=== PATIENT | male | born 1945 | race African-American/Black ===

== ENCOUNTER → 2016-10-29 | Outpatient (CLI) | payer MEDICARE, OTHER ==
[~2016-10-29] MED LIST: ADVAIR 250/28 DISKUS IH; AMARYL2 MG PO; COREG25 MG PO; FLONASE NASAL S16 GM NS; FUROSEMIDE; LANTUS100 U/ML SQ; LEVITRA20 MG PO; LIPITOR 80MG80 MG PO; LORAZEPAM0.5 MG PO; LOW DOSE ASPIRI81 MG PO; METFORMIN1000 MG PO; MICARDIS HCT 121 TA1 PO; NORVASC 10MG10 MG PO; NOVOLOG FLEX100 U/ML SQ; OMEGA-31000 MG PO; SODIUM CHLORIDE; VITAMIN B121000 MC2 PO; VITAMIN D32000 I1 PO; XOPENEX 3 ML3 M1 IH; ZYRTEC10 MG PO
== END ==
LOC: COL.VAS 09:24
DX: I10 Essential (primary) hypertension (principal); R06.02 Shortness of breath

== ENCOUNTER → 2017-05-19 | Outpatient (CLI) | payer MEDICARE, OTHER | LOC: COL.RAD 07:00 | DX: Z13.6 Encounter for screening for cardiovascular disorders (principal); Z87.891 Personal history of nicotine dependence ==

== ENCOUNTER → 2017-09-21 | Outpatient (CLI) | payer MEDICARE, OTHER ==
[~2017-09-21] VITALS: Ht 180.3 cm; Wt 126.0 kg
[~2017-09-21] MED LIST changes: +00186-0370-20 IH; +ALBUTEROL0.83 MG/ML IH; +AQUAPHOR HEALING41% TP; +ASPIRIN 81M81 MG/TA2 PO; +ATIVAN 0.50.5 MG/TAB PO; +CAPSAICIN0.025% TOP; +COREG 25MG25 MG/TAB PO; -COREG25 MG PO; +COZAAR 25MG25 MG/TAB PO; +CYMBALTA 30MG30 MG PO; +HCTZ 25MG TAB25 MG PO; +HYTRIN10 M1 PO; +K-DUR20 MEQ PO; +LASIX 80MG TABL80 MG PO; +LEVEMIR100 U/ML SQ; -LORAZEPAM0.5 MG PO; -LOW DOSE ASPIRI81 MG PO; +MIRALAX PA17 GM/Dose PO; +MUCUS RELIEF200 MG PO; +MULTIPLE VITAMI1 CAP PO; +NEURONTIN400 MG/CAP PO; +NOVOLOG 100U100 U/M1 SQ; +ONGLYZA5 MG PO; +PERIACTIN 4MG TA4 MG PO; +PROAIR HFA0.09 MG/AC IH; +SPIRIVA RE2.5 MCG/Ac IH; +VITAMIN D 1001000 IU PO
[2017-09-21 06:25] VITALS: BP 160/81; PULSE 85
[2017-09-21 07:50] VITALS: BP 161/80; PULSE 85
[2017-09-21 07:51] VITALS: BP 161/63; PULSE 87
[2017-09-21 07:53] VITALS: BP 153/78; PULSE 84
[2017-09-21 09:20] LABS: CALCIUM 9.6 mg/dL (8.4-10.2); CREATININE, serum 1.67 mg/dL (0.66-1.25); POTASSIUM 3.7 mmol/L (3.4-5.0)
== END ==
LOC: COL.CARD 09-16 10:45
PROVIDERS: Internal Medicine
DX: R07.89 Other chest pain (principal); R06.02 Shortness of breath; I50.30 Unspecified diastolic (congestive) heart failure
CPT/HCPCS: A9502; J2785

== ENCOUNTER 2017-10-13 10:11 | Inpatient (IN) | payer MEDICARE, OTHER ==
[~2017-10-13] VITALS: Ht 180.3 cm; Wt 126.6 kg
[2017-10-13 10:37] LABS: BASO % 0.1 % (0.0-2.0); GRAN # 13.4 (1.4-6.5); GRAN % 85.3 % (42.2-75.2); HEMOGLOBIN 9.5 g/dl (13.5-18.0); LYMPH # 0.8 (1.2-3.4); LYMPH % 5.1 % (20.0-51.0); MEAN CELL VOLUME 71 fl (80.0-100.0); MEAN CORPUSCULAR HEMOGLOBIN 22 pg (27.0-31.0); MEAN CORPUSCULAR HGB CONC 31 g/dl (33.0-37.0); MEAN PLATELET VOLUME 9.6 fl (7.4-10.4); MONO # 1.4 (0.1-0.6); MONO % 8.9 % (1.7-9.3); PLATELET COUNT 214 K/mm3 (130-400); RED BLOOD COUNT 4.34 M/mm3 (4.20-5.60)
[2017-10-13] MEDS ORDERED: LEVAQUIN 750MG750 M1 PO (10:45)
[2017-10-13 10:47] LABS: ARTERIAL BLD GAS O2 SATURATION 96.5 % (92-100); ARTERIAL BLD GAS TCO2 CT 39.4; ARTERIAL BLOOD GAS HCO3 37.8 meq/L (22-26); ARTERIAL BLOOD GAS PCO2 50.3 mmHg (35-45); ARTERIAL BLOOD GAS PO2 79.3 mmHg (80-100); ARTERIAL BLOOD GAS pH 7.49 (7.35-7.45)
[2017-10-13 11:04] LABS: ALANINE AMINOTRANSFERASE 26 U/L (21-72); ALKALINE PHOSPHATASE 71 U/L (50-136); ANION GAP 12 mmol/L (7-16); AST,SGOT 36 U/L (15-37); BILIRUBIN,TOTAL 0.5 mg/dL (0.0-1.0); BLOOD UREA NITROGEN 31 mg/dL (9-20); CALCIUM 8.8 mg/dL (8.4-10.2); CARBON DIOXIDE 37 mmol/L (22-30); CREATININE, serum 1.67 mg/dL (0.66-1.25); GLUCOSE 253 mg/dL (74-106); MAGNESIUM 1.9 mg/dL (1.6-2.3); PHOSPHOROUS 3.1 mg/dL (2.5-4.5); POTASSIUM 3.3 mmol/L (3.4-5.0); SODIUM 127 mmol/L (137-145); TOTAL PROTEIN 7.8 gm/dL (6.4-8.2)
[2017-10-13 11:07] LABS: CHLORIDE 77 mmol/L (98-107)
[2017-10-13 11:20] LABS: TROPONIN-I < 0.012 ng/mL (0.000-0.034)
[2017-10-13 11:24] LABS: INR 1.2 (0.8-3.0); PROTHROMBIN TIME 13.6 SECONDS (9.7-12.8)
[2017-10-13 11:27] LABS: PARTIAL THROMBOPLASTIN TIME 29.8 SECONDS (26.0-37.0)
[2017-10-13 12:32] LABS: COLLECTION METHOD CLEAN CATCH
[2017-10-13 12:40] LABS: PH 7 (5-8); SQUAMOUS EPITHELIAL None Seen /hpf; URINE APPEARANCE Clear; URINE BACTERIA None Seen /hpf; URINE BILIRUBIN Negative (NEGATIVE); URINE BLOOD Negative (NEGATIVE); URINE COLOR Straw; URINE GLUCOSE 2+ (NEGATIVE); URINE KETONE Negative (NEGATIVE); URINE LEUKOCYTE ESTERASE Negative (NEGATIVE); URINE NITRATE Negative (NEGATIVE); URINE PROTEIN(semi-quant) 1+ (NEGATIVE); URINE RBC None Seen /hpf; URINE UROBILINOGEN Negative (NEGATIVE)
[2017-10-13 17:26] VITALS: BP 145/80; PULSE 82; TEMP 97.7
[2017-10-13 19:24] LABS: MEAN CELL VOLUME 72 fl (80.0-100.0); MEAN CORPUSCULAR HGB CONC 30 g/dl (33.0-37.0); MEAN PLATELET VOLUME 9.5 fl (7.4-10.4); PLATELET COUNT 223 K/mm3 (130-400); RED BLOOD COUNT 4.51 M/mm3 (4.20-5.60); REDCELL DISTRIBUTION WIDTH-CV 17.1 % (11.5-14.5)
[2017-10-13 19:27] LABS: HEMATOCRIT 32.6 % (42.0-52.0); HEMOGLOBIN 9.8 g/dl (13.5-18.0); MEAN CORPUSCULAR HEMOGLOBIN 22 pg (27.0-31.0)
[2017-10-13 19:33] LABS: CALCIUM 8.7 mg/dL (8.4-10.2); CREATININE, serum 1.5 mg/dL (0.66-1.25); POTASSIUM 3.5 mmol/L (3.4-5.0)
[2017-10-13 20:00] VITALS: BP 150/68; PULSE 76; TEMP 98
[2017-10-14] VITALS (18 sets, daily range): BP systolic 112–149; BP diastolic 55–85; PULSE 61–76; TEMP 93–98.9
[2017-10-14 07:30] LABS: BASO % 0.1 % (0.0-2.0); EOS % 0.1 % (0-4.0); GRAN # 12.6 (1.4-6.5); GRAN % 80.5 % (42.2-75.2); LYMPH # 1.7 (1.2-3.4); LYMPH % 11.1 % (20.0-51.0); MEAN CELL VOLUME 74 fl (80.0-100.0); MEAN CORPUSCULAR HGB CONC 29 g/dl (33.0-37.0); MEAN PLATELET VOLUME 9.4 fl (7.4-10.4); MONO # 1.2 (0.1-0.6); MONO % 7.7 % (1.7-9.3); PLATELET COUNT 241 K/mm3 (130-400); RED BLOOD COUNT 4.31 M/mm3 (4.20-5.60); REDCELL DISTRIBUTION WIDTH-CV 17.2 % (11.5-14.5)
[2017-10-14 07:32] LABS: ALBUMIN 3.5 gm/dL (3.5-5.0); BILIRUBIN,TOTAL 0.6 mg/dL (0.0-1.0); CALCIUM 8.6 mg/dL (8.4-10.2); CHOLESTEROL RISK RATIO 2.5; CREATININE, serum 1.59 mg/dL (0.66-1.25); POTASSIUM 3.5 mmol/L (3.4-5.0); TOTAL PROTEIN 7.1 gm/dL (6.4-8.2)
[2017-10-14 07:42] LABS: HEMOGLOBIN 9.3 g/dl (13.5-18.0); MEAN CORPUSCULAR HEMOGLOBIN 22 pg (27.0-31.0)
[2017-10-15 04:49] VITALS: BP 135/63; PULSE 74; TEMP 98.6
[2017-10-15 05:20] LABS: ARTERIAL BLD GAS O2 SATURATION 81.2 % (92-100); ARTERIAL BLD GAS TCO2 CT 40.3; ARTERIAL BLOOD GAS HCO3 38.5 meq/L (22-26); ARTERIAL BLOOD GAS pH 7.43 (7.35-7.45)
[2017-10-15 05:22] LABS: ARTERIAL BLOOD GAS PO2 45.8 mmHg (80-100)
[2017-10-15 07:17] LABS: CALCIUM 8.7 mg/dL (8.4-10.2); CREATININE, serum 1.9 mg/dL (0.66-1.25); POTASSIUM 3.5 mmol/L (3.4-5.0)
[2017-10-15 07:26] VITALS: BP 144/77; PULSE 68; TEMP 97.4
[2017-10-15 11:34] VITALS: BP 121/61; PULSE 73; TEMP 98.3
[2017-10-15 16:27] VITALS: BP 124/58; PULSE 68; TEMP 98.5
[2017-10-15 20:58] VITALS: BP 116/50; PULSE 65; TEMP 97.5
[2017-10-16 00:43] VITALS: BP 126/65; PULSE 64; TEMP 97.7
[2017-10-16 03:10] VITALS: BP 141/73; PULSE 66; TEMP 98.7
[2017-10-16 07:53] LABS: CALCIUM 8.9 mg/dL (8.4-10.2); CREATININE, serum 1.89 mg/dL (0.66-1.25); POTASSIUM 4.2 mmol/L (3.4-5.0)
[2017-10-16 08:52] VITALS: BP 135/52; PULSE 64; TEMP 97.8
[2017-10-16] MEDS ORDERED: LIPITOR 80MG80 MG PO (08:58)
[2017-10-16] MEDS ORDERED: NITROSTAT0.4 MG/TAB SL (09:00)
[2017-10-16] MEDS ORDERED: ALDACTONE50 MG PO (09:01)
[2017-10-16] MEDS ORDERED: K-TAB20 PO (09:02)
[2017-10-16] MEDS ORDERED: ATIVAN 0.50.5 MG/TAB PO (09:03)
[2017-10-16] MEDS ORDERED: PREDNISONE20 MG PO (09:06)
[2017-10-16] MEDS ORDERED: LASIX 20MG TABL20 MG PO (09:07)
== END 2017-10-16 11:21 | disposition home health service (06) | DRG 286 ==
LOC: COL.ER 10:11 → MEDICAL 12:31
PROVIDERS: Emergency Medicine; Family Medicine; Internal Medicine Cardiovascular Disease
PROC: B2111ZZ Fluoroscopy of Multiple Coronary Arteries using Low Osmolar Contrast (ICD-10-PCS; principal; 2017-10-14)
PROC: B2151ZZ Fluoroscopy of Left Heart using Low Osmolar Contrast (ICD-10-PCS; 2017-10-14)
PROC: 4A023N8 Measurement of Cardiac Sampling and Pressure, Bilateral, Percutaneous Approach (ICD-10-PCS; 2017-10-14)
DX: I27.29 Other secondary pulmonary hypertension (principal); I50.33 Acute on chronic diastolic (congestive) heart failure; I13.0 Hypertensive heart and chronic kidney disease with heart failure and stage 1 through stage 4 chronic kidney disease, or unspecified chronic kidney disease; E87.1 Hypo-osmolality and hyponatremia; N17.9 Acute kidney failure, unspecified; I27.20 Pulmonary hypertension, unspecified; E66.2 Morbid (severe) obesity with alveolar hypoventilation; I25.10 Atherosclerotic heart disease of native coronary artery without angina pectoris; N18.3 Chronic kidney disease, stage 3 (moderate); E11.22 Type 2 diabetes mellitus with diabetic chronic kidney disease; J44.9 Chronic obstructive pulmonary disease, unspecified; E11.42 Type 2 diabetes mellitus with diabetic polyneuropathy; Z87.891 Personal history of nicotine dependence; E87.6 Hypokalemia; Z79.4 Long term (current) use of insulin; Z68.39 Body mass index [BMI] 39.0-39.9, adult
CPT/HCPCS: 99222; J1644; J1815; J2250; J3010; J3480; J7512; Q9967

== ENCOUNTER 2017-11-19 09:04 | Day surgery (SDC) | payer MEDICARE, OTHER ==
[~2017-11-19] VITALS: Ht 180.3 cm; Wt 120.7 kg
[2017-11-19 09:00] VITALS: BP 165/86; PULSE 77
[~2017-11-19 09:04] MED LIST changes: +ALDACTONE50 MG PO; +K-TAB20 PO; +LASIX 20MG TABL20 MG PO; +LEVAQUIN 750MG750 M1 PO; +NITROSTAT0.4 MG/TAB SL; +PREDNISONE20 MG PO
[2017-11-19 10:27] LABS: HEMOGLOBIN 10.5 g/dl (13.5-18.0); MEAN CELL VOLUME 79 fl (80.0-100.0); MEAN CORPUSCULAR HEMOGLOBIN 22 pg (27.0-31.0); MEAN CORPUSCULAR HGB CONC 28 g/dl (33.0-37.0); PLATELET COUNT 193 K/mm3 (130-400); RED BLOOD COUNT 4.71 M/mm3 (4.20-5.60); REDCELL DISTRIBUTION WIDTH-CV 18.5 % (11.5-14.5)
[2017-11-19 10:31] LABS: CALCIUM 9.2 mg/dL (8.4-10.2); CREATININE, serum 1.19 mg/dL (0.66-1.25)
[2017-11-19] MEDS ORDERED: PACERONE200 MG PO (10:38)
[2017-11-19 10:40] LABS: INR 1.1 (0.8-3.0); PROTHROMBIN TIME 12.2 SECONDS (9.7-12.8)
== END 2017-11-19 11:00 | disposition home or self-care (01) ==
LOC: COL.CAR 09:04
PROVIDERS: Internal Medicine Cardiovascular Disease
DX: I48.1 Persistent atrial fibrillation (principal); J44.9 Chronic obstructive pulmonary disease, unspecified; D64.9 Anemia, unspecified; E11.22 Type 2 diabetes mellitus with diabetic chronic kidney disease; I13.0 Hypertensive heart and chronic kidney disease with heart failure and stage 1 through stage 4 chronic kidney disease, or unspecified chronic kidney disease; N18.3 Chronic kidney disease, stage 3 (moderate); I50.22 Chronic systolic (congestive) heart failure; I27.20 Pulmonary hypertension, unspecified; I25.10 Atherosclerotic heart disease of native coronary artery without angina pectoris; I73.9 Peripheral vascular disease, unspecified; G47.33 Obstructive sleep apnea (adult) (pediatric); I74.5 Embolism and thrombosis of iliac artery; F43.10 Post-traumatic stress disorder, unspecified; F31.9 Bipolar disorder, unspecified; Z79.82 Long term (current) use of aspirin; Z79.4 Long term (current) use of insulin; Z87.891 Personal history of nicotine dependence
CPT/HCPCS: J2704

== ENCOUNTER 2018-05-03 13:04 | Inpatient (IN) | payer MEDICARE, OTHER ==
[~2018-05-03] VITALS: Ht 180.3 cm; Wt 110.4 kg
[~2018-05-03 13:04] MED LIST changes: +PACERONE200 MG PO
[2018-05-03 13:56] LABS: HEMOGLOBIN 10.6 g/dl (13.5-18.0); MEAN CELL VOLUME 83 fl (80.0-100.0); MEAN CORPUSCULAR HEMOGLOBIN 25 pg (27.0-31.0); MEAN CORPUSCULAR HGB CONC 30 g/dl (33.0-37.0); MEAN PLATELET VOLUME 10.8 fl (7.4-10.4); PLATELET COUNT 182 K/mm3 (130-400); REDCELL DISTRIBUTION WIDTH-CV 14.6 % (11.5-14.5)
[2018-05-03 14:04] LABS: HEMATOCRIT 34.9 % (42.0-52.0)
[2018-05-03 14:07] LABS: ALANINE AMINOTRANSFERASE 25 U/L (21-72); ALBUMIN 3.7 gm/dL (3.5-5.0); ALKALINE PHOSPHATASE 120 U/L (50-136); ANION GAP 10 mmol/L (7-16); AST,SGOT 28 U/L (15-37); BILIRUBIN,TOTAL 0.5 mg/dL (0.0-1.0); BLOOD UREA NITROGEN 60 mg/dL (9-20); CALCIUM 9.2 mg/dL (8.4-10.2); CARBON DIOXIDE 31 mmol/L (22-30); CHLORIDE 92 mmol/L (98-107); GLUCOSE 192 mg/dL (74-106); POTASSIUM 4.9 mmol/L (3.4-5.0); SODIUM 133 mmol/L (137-145); TOTAL PROTEIN 7.8 gm/dL (6.4-8.2)
[2018-05-03 14:21] LABS: TROPONIN-I < 0.012 ng/mL (0.000-0.035)
[2018-05-03 14:23] LABS: ANISOCYTOSIS 1+; BAND 6 % (0-10); HYPOCHROMIA 1+; LYMPHOCYTE 4 % (20.0-51.0); NEUTROPHILS 89 % (42.0-75.2); NUCLEATED RED BLOOD CELL 2 (0-6); PLATELET ESTIMATE NORMAL (NORMAL)
[2018-05-03 16:21] VITALS: BP 118/51; PULSE 71; TEMP 99
[2018-05-03] MEDS ORDERED: FERROUS SU325 MG/TAB PO (17:36)
[2018-05-03] MEDS ORDERED: ELIQUIS 5MG PO (17:36)
[2018-05-03] MEDS ORDERED: ALDACTONE50 MG PO (17:37)
[2018-05-03] MEDS ORDERED: PACERONE200 MG PO (17:37)
[2018-05-03] MEDS ORDERED: LASIX 20MG TABL20 MG PO (17:37)
[2018-05-03] MEDS ORDERED: CORDARONE200 MG/TAB PO (17:58)
--- NOTE | 2018-05-03 18:24 | NUR ---
Patient arrived to floor at 1650 via stretcher from ER. Assisted to bed, did have some difficulty moving from stretcher to bed, did become fatigued easily. Denied pain. Was settled in bed. Requested assistance removing jeans and putting on a larger size brief. States he has not urinated all day. IVF are being administered. Patient has been able to drink water without difficulty. States his appetite has been poor but was able to eat 100% of grilled cheese, tomato soup and fruit. No needs verbalized. Call light is within reach.
[2018-05-03 19:38] LABS: COLLECTION METHOD CLEAN CATCH
[2018-05-03 19:50] LABS: BUDDING YEAST Present /hpf; MUCOUS Present /lpf; PH 5 (5-8); SQUAMOUS EPITHELIAL None Seen /hpf; URINE APPEARANCE Cloudy; URINE BACTERIA Occasional /hpf; URINE BILIRUBIN Negative (NEGATIVE); URINE BLOOD 1+ (NEGATIVE); URINE COLOR Yellow; URINE GLUCOSE Negative (NEGATIVE); URINE KETONE Negative (NEGATIVE); URINE LEUKOCYTE ESTERASE 2+ (NEGATIVE); URINE NITRATE Negative (NEGATIVE); URINE PROTEIN(semi-quant) 2+ (NEGATIVE); URINE RBC 20-50 /hpf
[2018-05-03 20:09] VITALS: BP 124/92; PULSE 70; TEMP 98.6
[2018-05-03 23:15] VITALS: BP 124/55; PULSE 64; TEMP 99
[2018-05-04 04:19] VITALS: BP 120/50; PULSE 60; TEMP 97.9
[2018-05-04 08:01] VITALS: BP 134/59; PULSE 64; TEMP 98.3
[2018-05-04 08:40] LABS: MEAN CELL VOLUME 83 fl (80.0-100.0); MEAN CORPUSCULAR HGB CONC 31 g/dl (33.0-37.0); MEAN PLATELET VOLUME 10.8 fl (7.4-10.4); PLATELET COUNT 184 K/mm3 (130-400); RED BLOOD COUNT 3.92 M/mm3 (4.20-5.60); REDCELL DISTRIBUTION WIDTH-CV 14.9 % (11.5-14.5)
[2018-05-04 08:54] LABS: HEMATOCRIT 32.4 % (42.0-52.0); HEMOGLOBIN 9.9 g/dl (13.5-18.0); MEAN CORPUSCULAR HEMOGLOBIN 25 pg (27.0-31.0)
[2018-05-04 08:57] LABS: CALCIUM 8.9 mg/dL (8.4-10.2); CREATININE, serum 3.06 mg/dL (0.66-1.25); POTASSIUM 5.1 mmol/L (3.4-5.0)
[2018-05-04 09:18] LABS: BAND 17 % (0-10); EOSINOPHIL 1 % (0-4); LYMPHOCYTE 3 % (20.0-51.0); NEUTROPHILS 76 % (42.0-75.2); PLATELET ESTIMATE NORMAL (NORMAL)
--- NOTE | 2018-05-04 09:36 | NUR ---
Pt alert and oriented. Pt does require nurse to repeat instruction and education often. Pt states SOB at rest. Pt wearing oxygen via nasal cannula at 3L and saturations above 90%. Pt rates pain 5/10 in feet d/t neuropathy. Pt eating breakfast and has call light in reach to call for assistance to get up. Pt high fall risk and precautions in place.
[2018-05-04 10:59] VITALS: BP 113/45; PULSE 67; TEMP 97.2
--- NOTE | 2018-05-04 13:56 | NUR ---
AVIVA and SW student met with patient to discuss discharge planning. Patient lives in [place] with his . He reports he is his wifes caregiver as she was recently diagnosed with parkinsons. She is the one that takes care of the medications and he is worried that sometimes during her confused periods she gave him the wrong medications. He plans on taking over at discharge and his daughter is there with her now. AVIVA discussed home health with him. He has had [facility] in the past and would like to use them again. AVIVA called willy and made referral, informing her of medications situation so they can watch it. Patients PCP is either Jairo or Dr Simmons and he obtains his medications from [facility]. Patient gets home o2 through a company in [place] but doesnt know the name and reports the [facility] it up form him. Patient has a walker and wheelchair but doesnt use them consistently. SW will continue to follow.
[2018-05-04 16:00] VITALS: BP 138/59; PULSE 62; TEMP 98.2
--- NOTE | 2018-05-04 19:24 | NUR ---
Pt alert and oriented but conversation confused at times. Pt has pain in feet managed with PRN meds. Pt has family at bedside today. Pt brought in home CPAP. Pt remains on 3L oxygen which is his baseline. Pt has call light in reach and denies needs at this time.
[2018-05-04 21:15] VITALS: BP 127/55; PULSE 65; TEMP 98
[2018-05-04 23:39] VITALS: BP 125/51; PULSE 64; TEMP 97.7
[2018-05-05 00:47] LABS: COLLECTION METHOD CLEAN CATCH
[2018-05-05 01:04] LABS: PH 5 (5-8); SQUAMOUS EPITHELIAL None Seen /hpf; URINE APPEARANCE Clear; URINE BACTERIA None Seen /hpf; URINE BILIRUBIN Negative (NEGATIVE); URINE BLOOD 1+ (NEGATIVE); URINE COLOR Yellow; URINE GLUCOSE Negative (NEGATIVE); URINE KETONE Negative (NEGATIVE); URINE LEUKOCYTE ESTERASE Negative (NEGATIVE); URINE NITRATE Negative (NEGATIVE); URINE PROTEIN(semi-quant) Negative (NEGATIVE); URINE UROBILINOGEN Negative (NEGATIVE)
--- NOTE | 2018-05-05 03:29 | NUR ---
Patient denies having pain and discomfort. Did complain of having difficulty sleeping/anxiety earlier this shift, and was given PRN Ativan to help, which patient states has been effective. NS running at 100 ml/hr to right hand. Continues on droplet isolation for pending RSV at thist corie. Wears oxygen at 3 L/min via NC, and wears CPAP while sleeping with 3 L of supplemental oxygen. Denies having SOB and dyspnea. No cough noted at this time. LS CTA in upper lobes, diminished in lower lobes bilaterally. UA obtained per orders and taken to lab. Urine is clear and yellow. Denies having burning, pain, and discomfort with urination. Denies feelings of urinary frequency, urgency, and retention. Resting in bed with eyes closed at this time. Call light is within reach.
--- NOTE | 2018-05-05 13:30 | NUR ---
AVIVA Talked with Antoinette at Dr boudreaux office about discharge plan. She reports she is working with the patients and would like to use the same home health company. AVIVA informed her that patient would like to use [facility] at discharge. Antoinette agreeable.
[2018-05-06 08:00] VITALS: BP 150/56; PULSE 65; TEMP 97.5
--- NOTE | 2018-05-06 08:30 | NUR ---
Pt is awake and A/Ox4, pt denies pain at this time. IVF are infusing into right hand without difficulty. Pt remains on 3L O2 per NC, resp. are even and unlabored. Pt does have exp. wheezes. Pt using urinal without difficulty. Denies any other needs.
[2018-05-06 13:23] LABS: HEMOGLOBIN 10.5 g/dl (13.5-18.0); MEAN CELL VOLUME 82 fl (80.0-100.0); MEAN CORPUSCULAR HEMOGLOBIN 25 pg (27.0-31.0); MEAN CORPUSCULAR HGB CONC 31 g/dl (33.0-37.0); MEAN PLATELET VOLUME 11.2 fl (7.4-10.4); PLATELET COUNT 197 K/mm3 (130-400); RED BLOOD COUNT 4.17 M/mm3 (4.20-5.60); REDCELL DISTRIBUTION WIDTH-CV 15.3 % (11.5-14.5)
[2018-05-06 13:27] LABS: HEMATOCRIT 34.1 % (42.0-52.0)
[2018-05-06 13:28] LABS: NEUTROPHILS 98 % (42.0-75.2)
[2018-05-06 13:29] LABS: LYMPHOCYTE 1 % (20.0-51.0); PLATELET ESTIMATE NORMAL (NORMAL); TOXIC GRANULATION PRESENT
[2018-05-06 13:37] LABS: CALCIUM 8.7 mg/dL (8.4-10.2); CREATININE, serum 2.48 mg/dL (0.66-1.25); MAGNESIUM 2.2 mg/dL (1.6-2.3); POTASSIUM 5.3 mmol/L (3.4-5.0)
--- NOTE | 2018-05-06 14:05 | NUR ---
AVIVA received a call from patients daughter. She is worried about him returning home without snf first. She reports they do have merry maids and his has some hh that comes in to help clean and cook. They do plan on moving both parents to [place] once patient is strong enough. She reports she talked to patient last night and he is agreeable. Dr calderon would like patient to go to [facility]. Darrick from [facility] called to report they have one room open and will hold it for patient. AVIVA faxed referral to [facility]. Will meet with family and patient this afternoon when the arrive.
--- NOTE | 2018-05-06 16:00 | NUR ---
Pt was transfered to room 318 from ICU. He is awake and A/Ox4. He is independent in his room. He denies pain or discomfort. Saline lock to left FA is free of complications. Meds/allergies/pharm reviewed. Pt was oriented to room and to staff, expressed understanding. Denies any needs.
[2018-05-06 16:02] LABS: ALBUMIN 3.1 gm/dL (3.5-5.0); BILIRUBIN,TOTAL 0.3 mg/dL (0.0-1.0); CALCIUM 8.9 mg/dL (8.4-10.2); CREATININE, serum 2.55 mg/dL (0.66-1.25); POTASSIUM 5.2 mmol/L (3.4-5.0); TOTAL PROTEIN 7.1 gm/dL (6.4-8.2)
--- NOTE | 2018-05-06 16:02 | NUR ---
SW met with patient and his daughter to discuss SNF placement. Patient is agreeable to go to [facility]. Choice form obtained and placed on chart. SW will continue to follow. Referral has been sent
[2018-05-06 16:45] LABS: HEMOGLOBIN 10.6 g/dl (13.5-18.0); MEAN CELL VOLUME 83 fl (80.0-100.0); MEAN CORPUSCULAR HEMOGLOBIN 25 pg (27.0-31.0); MEAN CORPUSCULAR HGB CONC 30 g/dl (33.0-37.0); MEAN PLATELET VOLUME 10.4 fl (7.4-10.4); PLATELET COUNT 187 K/mm3 (130-400); RED BLOOD COUNT 4.21 M/mm3 (4.20-5.60); REDCELL DISTRIBUTION WIDTH-CV 15.4 % (11.5-14.5)
[2018-05-06 16:47] LABS: LYMPHOCYTE 6 % (20.0-51.0); NEUTROPHILS 90 % (42.0-75.2); PLATELET ESTIMATE NORMAL (NORMAL)
[2018-05-06 16:48] LABS: BURR CELLS 1+
[2018-05-06 16:52] VITALS: BP 155/62; PULSE 66; TEMP 98.3
[2018-05-06 18:11] LABS: CREATININE, serum 2.54 mg/dL (0.66-1.25); FRACTIONAL EXCRETION OF NA+ 3.4 %
[2018-05-06 19:07] VITALS: BP 169/58; PULSE 67; TEMP 97.7
[2018-05-07 00:25] VITALS: BP 164/63; PULSE 62; TEMP 98.2
--- NOTE | 2018-05-07 01:15 | NUR ---
Family at bedside at beginning of shift. Patient smiling and voiced no needs. After HS medications were given, dentures taken out and cleaned. Toothette given to patient as requested for oral care. One assist with use of urinal. Patient does not call at night for assistance with using the urinal most of the time. Bed alarm put on bed to help notify staff when patient needs anything, as patient does not remember to call for assistance. Given PRN Ativan at bedtime as requested. Allowed this nurse to put CPAP on around 2300. 3 L of oxygen is supplemented into CPAP. Patient tolerating CPAP so far. Patient has a moist cough. Unable to produce sputum for observation. LS with expiratory wheezes in upper lobes, diminished in lower lobes. Continues to have labored breathing and complaints of SOB and dyspnea with exertion. Denies at rest, and respirations are unlabored. Denies having any needs or concerns at this time. Resting in bed with eyes closed. Call light is within reach.
--- NOTE | 2018-05-07 03:07 | NUR ---
Resting in bed with call light within reach. Continues to wear CPAP, with 3 L of supplemented oxygen. Urinal emptied. Urine clear and yellow. Bed alarm continues to be on. Has voiced no needs or concerns.
[2018-05-07 05:55] VITALS: BP 154/63; PULSE 69; TEMP 98.4
--- NOTE | 2018-05-07 05:59 | NUR ---
Denies having pain and discomfort. Patient took off CPAP around 0430. Switched to NC at that time, with oxygen running at 3 L/min via NC. Continues to have moist cough, but unable to produce sputum. Assisted with urinal. Denies having any other needs at this time. Sitting upright in bed watching TV at this time. Call light is within reach. Bed alarm is on.
[2018-05-07 07:38] LABS: BASO % 0.1 % (0.0-2.0); GRAN # 18.4 (1.4-6.5); GRAN % 84.9 % (42.2-75.2); HEMOGLOBIN 10.3 g/dl (13.5-18.0); LYMPH # 1.6 (1.2-3.4); LYMPH % 7.3 % (20.0-51.0); MEAN CELL VOLUME 83 fl (80.0-100.0); MEAN CORPUSCULAR HEMOGLOBIN 25 pg (27.0-31.0); MEAN CORPUSCULAR HGB CONC 30 g/dl (33.0-37.0); MEAN PLATELET VOLUME 10.7 fl (7.4-10.4); MONO # 1.5 (0.1-0.6); PLATELET COUNT 218 K/mm3 (130-400); RED BLOOD COUNT 4.11 M/mm3 (4.20-5.60); REDCELL DISTRIBUTION WIDTH-CV 15.5 % (11.5-14.5)
[2018-05-07 07:44] LABS: ALBUMIN 3.1 gm/dL (3.5-5.0); BILIRUBIN,TOTAL 0.3 mg/dL (0.0-1.0); CREATININE, serum 2.62 mg/dL (0.66-1.25); POTASSIUM 5.1 mmol/L (3.4-5.0); TOTAL PROTEIN 6.9 gm/dL (6.4-8.2)
[2018-05-07 07:48] LABS: HEMATOCRIT 34.1 % (42.0-52.0)
[2018-05-07 07:59] VITALS: BP 147/57; PULSE 66; TEMP 98
--- NOTE | 2018-05-07 08:00 | NUR ---
Patient resting in bed at this time. Patient is alert and oriented, answers questions appropriately. Patient is not currently in respiratory distress, on O2 at 3L via NC, periodic non productive cough. Telemetry in place per order. VS WNL. Patient currently denies pain or further needs, call light within reach.
[2018-05-07 17:23] VITALS: BP 171/59; PULSE 66; TEMP 97.9
--- NOTE | 2018-05-07 17:39 | NUR ---
Patient has been up to bedside recliner today. Patient remains alert and oriented, answers questions appropriately. Patient continues to wear O2 at 3L via NC, no complaints of SOB, cough appears to have lessened during the shift. Patient denies pain or further needs, call light within reach.
[2018-05-07 19:07] VITALS: BP 159/59; PULSE 66; TEMP 97.5
--- NOTE | 2018-05-07 21:20 | NUR ---
Shift assessment complete. Patient a/o x3, in chair, Patient c/o 5/10 pain in BLE. Prn pain medication given. Patient will call when he is ready to go back to bed for the night. Will continue to assess.
--- NOTE | 2018-05-08 00:21 | NUR ---
Patient ambulated from chair to bed with assist x1. Patient c/o pain in BLE, denies need for medication. Respiratory notified to apply CPAP per pt request.
[2018-05-08 01:05] VITALS: BP 163/61; PULSE 59
[2018-05-08 04:00] VITALS: BP 159/74; PULSE 59; TEMP 97.6
--- NOTE | 2018-05-08 04:17 | NUR ---
Patient in bed, sleeping. Appears comfortable. Will continue to monitor.
[2018-05-08 09:07] VITALS: BP 169/72; PULSE 64; TEMP 97.3
--- NOTE | 2018-05-08 09:37 | NUR ---
Assessment complete.patient awake,a/ox3.denies pain or discomfort at this time.exp wheezes to Bilat upper lungs and Lung sounds diminished to bilat bases.pt on RA at at this time and stats 93%.no cough noted.patient denies any other needs at this time.call light in reach
[2018-05-08 10:39] LABS: BASO % 0.1 % (0.0-2.0); EOS # 0.1 (0.0-0.7); EOS % 0.3 % (0-4.0); GRAN # 19.9 (1.4-6.5); GRAN % 85.3 % (42.2-75.2); HEMATOCRIT 37.4 % (42.0-52.0); HEMOGLOBIN 11.2 g/dl (13.5-18.0); LYMPH # 1.7 (1.2-3.4); LYMPH % 7.2 % (20.0-51.0); MEAN CELL VOLUME 82 fl (80.0-100.0); MEAN CORPUSCULAR HEMOGLOBIN 25 pg (27.0-31.0); MEAN CORPUSCULAR HGB CONC 30 g/dl (33.0-37.0); MEAN PLATELET VOLUME 10.6 fl (7.4-10.4); MONO # 1.5 (0.1-0.6); MONO % 6.3 % (1.7-9.3); PLATELET COUNT 260 K/mm3 (130-400); RED BLOOD COUNT 4.56 M/mm3 (4.20-5.60); REDCELL DISTRIBUTION WIDTH-CV 15.4 % (11.5-14.5)
[2018-05-08 10:54] LABS: CALCIUM 9.4 mg/dL (8.4-10.2); CREATININE, serum 2.41 mg/dL (0.66-1.25); POTASSIUM 4.9 mmol/L (3.4-5.0)
[2018-05-08 11:57] VITALS: BP 155/79; PULSE 60; TEMP 98.1
--- NOTE | 2018-05-08 15:39 | NUR ---
patient called to report bleeding to nostril.This RN applied ice and it stopped bleeding.Dr. Payan notified.will continue to monitor.call light in reach
[2018-05-08 16:58] VITALS: BP 159/54; PULSE 58; TEMP 97.3
--- NOTE | 2018-05-08 19:16 | NUR ---
patient resting in recliner.nose bleed stopped.blood sugars stable.patient had good output this shift.pt denies any other needs at this time.call light in reach
[2018-05-08 20:00] VITALS: BP 162/57; PULSE 60; TEMP 97.4
[2018-05-09 00:32] VITALS: BP 161/67; PULSE 60; TEMP 97.9
--- NOTE | 2018-05-09 01:15 | NUR ---
Patient assessed around 2144. Alert and oriented, with intermittent confusion. Patient is unable to make needs known. Staff checks on and asks if he needs any assistance when awake. Bed alarm is on when in bed to alert staff as to when patient is getting up so that staff may assist, and patient can demonstrate how to use the call light, but when he needs assistance he forgets. LS clear in upper lobes, diminished in lower lobes. Respirations are even and unlabored. Denies having SOB and dyspnea, except with exertion. Respirations become labored at that time as well. Wears oxygen at 3 L/min via NC. During the night, patient wears CPAP with 3 L of oxygen going into CPAP as well. Heart with regular rate and rhythm. Capillary refill less than 3 seconds. Non-tenting skin turgor. 1+ edema to BLE. BLE dry. Scab to left elbow. Denies having pain and discomfort. Resting in bed with eyes closed at this time. Call light is within reach.
[2018-05-09 04:48] VITALS: BP 168/66; PULSE 55; TEMP 97.7
[2018-05-09 06:03] LABS: BASO % 0.1 % (0.0-2.0); EOS # 0.1 (0.0-0.7); EOS % 0.2 % (0-4.0); GRAN # 18.1 (1.4-6.5); GRAN % 80.8 % (42.2-75.2); HEMATOCRIT 37.7 % (42.0-52.0); HEMOGLOBIN 11.2 g/dl (13.5-18.0); LYMPH # 2.4 (1.2-3.4); LYMPH % 10.8 % (20.0-51.0); MEAN CELL VOLUME 83 fl (80.0-100.0); MEAN CORPUSCULAR HEMOGLOBIN 25 pg (27.0-31.0); MEAN CORPUSCULAR HGB CONC 30 g/dl (33.0-37.0); MEAN PLATELET VOLUME 10.1 fl (7.4-10.4); MONO # 1.6 (0.1-0.6); MONO % 7.2 % (1.7-9.3); PLATELET COUNT 355 K/mm3 (130-400); RED BLOOD COUNT 4.56 M/mm3 (4.20-5.60); REDCELL DISTRIBUTION WIDTH-CV 15.7 % (11.5-14.5)
[2018-05-09 06:22] LABS: CALCIUM 9.5 mg/dL (8.4-10.2); CREATININE, serum 2.26 mg/dL (0.66-1.25)
--- NOTE | 2018-05-09 06:43 | NUR ---
Patient was assisted into bed around 2330. Stayed in bed throughout the night. Denies having pain and discomfort. Blood sugar this morning was 57. Given juice, and blood sugar increased to 71. Denies having dizzyness and lightheadedness. No tremors or diaphoresis noted. Continues to wear oxygen at 3 L/min via NC at this time. Resting in bed with call light within reach.
--- NOTE | 2018-05-09 07:20 | NUR ---
Report received from TRAVIS Salcedo.
[2018-05-09 09:10] VITALS: BP 139/56; PULSE 65; TEMP 97.6
--- NOTE | 2018-05-09 09:40 | NUR ---
Physical therapy worked with pt at 0830. Pt sitting on side of bed and able to take meds without any difficulty. Pt walked to chair with standby assist. Steady gait. Pt tolerated well. Some SOB with exertion, remains on 3L/NC. Call light within reach. Explained to pt to call before getting up and if need anything.
--- NOTE | 2018-05-09 09:53 | NUR ---
Initial visit; Patient thanked Collections Associate for looking in on her and offering get well blessings.
--- NOTE | 2018-05-09 09:56 | NUR ---
report given to TRAVIS Redd.
[2018-05-09 13:20] VITALS: BP 131/41; PULSE 62; TEMP 97.4
--- NOTE | 2018-05-09 13:57 | NUR ---
AVIVA contacted and faxed updates to Alyssa at [facility]. SW to continue to follow.
[2018-05-09 16:41] VITALS: BP 149/53; PULSE 62; TEMP 97.5
[2018-05-09 19:40] VITALS: BP 150/58; PULSE 63; TEMP 97.4
--- NOTE | 2018-05-09 21:32 | NUR ---
PT IN BED WITH HOB ELEVATED TO 45 DEGREE ANGLE. PT DENIES PAIN OR DISCOMFORT. HAS O2 AT 3L/NC. NO NEEDS AT THIS TIME, CALL LIGHT WITHIN REACH.
[2018-05-10 00:15] VITALS: BP 149/71; PULSE 63; TEMP 98
[2018-05-10 04:48] VITALS: BP 127/43; PULSE 64; TEMP 98.5
--- NOTE | 2018-05-10 05:25 | NUR ---
UNEVENTFUL NIGHT, PT SLEPT/RESTED MOST OF THE NIGHT. PT DID WAKE UP AROUND 4AM AND HAD C/O PAIN IN HIS FEET RATED A 5/10 WHICH WAS A DULL PAIN. PT WAS GIVEN TYLENOL AND PT DRIFTED BACK TO SLEEP WITH NO PROBLEMS. PT HAS CALL LIGHT WITHIN REACH.
[2018-05-10 07:12] LABS: BASO % 0.1 % (0.0-2.0); EOS # 0.1 (0.0-0.7); EOS % 0.4 % (0-4.0); GRAN # 17.1 (1.4-6.5); GRAN % 81.7 % (42.2-75.2); HEMOGLOBIN 10.6 g/dl (13.5-18.0); LYMPH # 2.1 (1.2-3.4); LYMPH % 10.2 % (20.0-51.0); MEAN CELL VOLUME 82 fl (80.0-100.0); MEAN CORPUSCULAR HEMOGLOBIN 25 pg (27.0-31.0); MEAN CORPUSCULAR HGB CONC 30 g/dl (33.0-37.0); MEAN PLATELET VOLUME 10.1 fl (7.4-10.4); MONO # 1.4 (0.1-0.6); MONO % 6.8 % (1.7-9.3); PLATELET COUNT 353 K/mm3 (130-400); RED BLOOD COUNT 4.26 M/mm3 (4.20-5.60); REDCELL DISTRIBUTION WIDTH-CV 15.8 % (11.5-14.5)
[2018-05-10 07:26] LABS: CALCIUM 8.9 mg/dL (8.4-10.2); CREATININE, serum 2.19 mg/dL (0.66-1.25); POTASSIUM 5.5 mmol/L (3.4-5.0)
--- NOTE | 2018-05-10 07:30 | NUR ---
shift assessment complete, O2 on at 3L/NC. No SOB noted at rest. INT to right hand no redness noted. Voiced no concerns at this time, bed alarm on.
[2018-05-10 07:32] VITALS: BP 136/58; PULSE 59; TEMP 98.1
--- NOTE | 2018-05-10 07:34 | NUR ---
Report on to TRAVIS Ozuna.
--- NOTE | 2018-05-10 08:25 | NUR ---
Pt alert and oriented and rates pain 5/10. Pt given Tylenol at 0500 and can have another dose at 0900. Pt aware and OK with waiting. Pt pain is in his feet d/t neuropathy. Pt lungs clear this am. Pt has fall precautions in place and bed alarm on d/t intermittent confusion and weakness. Pt denies chest pain or SOB at rest with 3L oxygen via nasal cannula which is pt's baseline. Pt has call light in reach and am assessment completed. Pt IV patent and no redness or infiltration noted. IV flushed. Pt has call light in reach and bed alarm on. Pt had 275 out this am clear yellow urine. Pt ordered breakfast.
[2018-05-10] MEDS ORDERED: OMNICEF 300MG300 MG PO (09:42)
[2018-05-10] MEDS ORDERED: IPRATROPIUM BROM3 M1 IH (09:43)
[2018-05-10] MEDS ORDERED: ELIQUIS 5MG PO ×2 (09:44→10:14)
[2018-05-10] MEDS ORDERED: VELTASSA8.4 GM PO (09:45)
[2018-05-10] MEDS ORDERED: LEADER CLE17 GM/Dose PO (09:54)
[2018-05-10] MEDS ORDERED: PREDNISONE20 MG PO (09:55)
[2018-05-10] MEDS ORDERED: SENOKOT S 50 MG1 TAB PO (09:55)
[2018-05-10] MEDS ORDERED: NOVOLOG FLEX100 U/ML SQ ×2 (09:57)
[2018-05-10] MEDS ORDERED: LEVEMIR FLEX100 U/ML SQ ×2 (09:58)
[2018-05-10] MEDS ORDERED: ATIVAN 0.50.5 MG/TAB PO (09:58)
--- NOTE | 2018-05-10 10:00 | NUR ---
Ambulated with PT, no SOB noted with activity, pt has steady gait, tolerates activity well.
--- NOTE | 2018-05-10 10:58 | NUR ---
Pt has orders to discharge. IV will be discontinued when Swethak gives us a time for pt to be picked up today.
--- NOTE | 2018-05-10 11:00 | NUR ---
VSS, assessment unchanged, pt sitting up in recliner with chair alarm on. Voiced no concerns or needs at this time.
--- NOTE | 2018-05-10 11:26 | NUR ---
Report off to TRAVIS Ozuna.
[2018-05-10 12:11] VITALS: BP 136/58; PULSE 59; TEMP 98.1
[2018-05-10 13:17] VITALS: BP 139/61; PULSE 63; TEMP 98.2
--- NOTE | 2018-05-10 13:45 | NUR ---
Pt alert and oriented and denies pain. Pt belongings gathered and sent with [facility] transport. Transfer papers and outpatient Valtessa meds and script sent with transport gentlemen from [facility]. VS WNL. Pt escorted by transport via wheelchair and portable oxgen to [facility] transportation vehicle without issue. This nurse left message on [employer] for nurse to call for report. Transport given update on pt and denies further needs.
--- NOTE | 2018-05-10 14:03 | NUR ---
SW student presented IM to patient and discussed contents. Patient was agreeable and signed. Patient denied copy and original was placed on the chart.
--- NOTE | 2018-05-10 14:12 | NUR ---
Patient is dc today to [facility] for skilled stay. Patient and family are agreeable. Lisa at [facility] confirms acceptance and schedules transport for 1:30 PM. Nurse informed. Discharge orders faxed to [facility].
--- NOTE | 2018-05-10 15:10 | NUR ---
Called to Dinh rachel 3x different times and had to leave message to call this nurse for report on patient. No return call at this time.
== END 2018-05-10 13:30 | DRG 871 ==
LOC: COL.ER 13:04 → MEDICAL 14:35
PROVIDERS: Emergency Medicine; Internal Medicine Nephrology; Nurse Practitioner Family; Physician Assistant; ADMIT Internal Medicine
DX: A41.51 Sepsis due to Escherichia coli [E. coli] (principal); J18.9 Pneumonia, unspecified organism; I50.33 Acute on chronic diastolic (congestive) heart failure; N39.0 Urinary tract infection, site not specified; I13.0 Hypertensive heart and chronic kidney disease with heart failure and stage 1 through stage 4 chronic kidney disease, or unspecified chronic kidney disease; N17.9 Acute kidney failure, unspecified; E66.2 Morbid (severe) obesity with alveolar hypoventilation; B96.20 Unspecified Escherichia coli [E. coli] as the cause of diseases classified elsewhere; Z91.81 History of falling; Z91.14 Patient's other noncompliance with medication regimen; E11.9 Type 2 diabetes mellitus without complications; J44.9 Chronic obstructive pulmonary disease, unspecified; N18.3 Chronic kidney disease, stage 3 (moderate); E11.22 Type 2 diabetes mellitus with diabetic chronic kidney disease; Z79.4 Long term (current) use of insulin; F43.10 Post-traumatic stress disorder, unspecified; F31.9 Bipolar disorder, unspecified; E11.40 Type 2 diabetes mellitus with diabetic neuropathy, unspecified; I25.10 Atherosclerotic heart disease of native coronary artery without angina pectoris; I48.0 Paroxysmal atrial fibrillation; I27.20 Pulmonary hypertension, unspecified; I73.9 Peripheral vascular disease, unspecified; Z79.01 Long term (current) use of anticoagulants; Z87.891 Personal history of nicotine dependence; E86.0 Dehydration; E11.65 Type 2 diabetes mellitus with hyperglycemia; E11.21 Type 2 diabetes mellitus with diabetic nephropathy; E87.5 Hyperkalemia; E11.649 Type 2 diabetes mellitus with hypoglycemia without coma; Z68.33 Body mass index [BMI] 33.0-33.9, adult; E78.2 Mixed hyperlipidemia
CPT/HCPCS: 99222-AI; 99232-AI; 99233-AI; 99239; A4216; J0696; J1815; J2930; J7030; J7512

== ENCOUNTER 2018-05-17 17:31 | Emergency (ER) | payer MEDICARE, OTHER ==
[~2018-05-17] VITALS: Ht 180.3 cm; Wt 114.1 kg
[~2018-05-17 17:31] MED LIST changes: +CORDARONE200 MG/TAB PO; +ELIQUIS 5MG PO; +FERROUS SU325 MG/TAB PO; +IPRATROPIUM BROM3 M1 IH; +LEADER CLE17 GM/Dose PO; +LEVEMIR FLEX100 U/ML SQ; +OMNICEF 300MG300 MG PO; +SENOKOT S 50 MG1 TAB PO; +VELTASSA8.4 GM PO
[2018-05-17 17:34] VITALS: TEMP 96.8
[2018-05-17 17:58] LABS: BASO % 0.1 % (0.0-2.0); EOS # 0.2 (0.0-0.7); EOS % 1.4 % (0-4.0); GRAN % 79.2 % (42.2-75.2); LYMPH # 1.7 (1.2-3.4); LYMPH % 12.2 % (20.0-51.0); MEAN CELL VOLUME 85 fl (80.0-100.0); MEAN CORPUSCULAR HGB CONC 29 g/dl (33.0-37.0); MONO # 0.9 (0.1-0.6); MONO % 6.7 % (1.7-9.3); PLATELET COUNT 289 K/mm3 (130-400); RED BLOOD COUNT 3.89 M/mm3 (4.20-5.60)
[2018-05-17 18:00] LABS: HEMATOCRIT 33.2 % (42.0-52.0); HEMOGLOBIN 9.7 g/dl (13.5-18.0); MEAN CORPUSCULAR HEMOGLOBIN 25 pg (27.0-31.0)
[2018-05-17 18:05] LABS: ALBUMIN 3.1 gm/dL (3.5-5.0); BILIRUBIN,TOTAL 0.3 mg/dL (0.0-1.0); CALCIUM 8.8 mg/dL (8.4-10.2); CREATININE, serum 2.06 mg/dL (0.66-1.25); POTASSIUM 5.1 mmol/L (3.4-5.0); TOTAL PROTEIN 6.5 gm/dL (6.4-8.2)
[2018-05-17 19:20] VITALS: BP 126/57; PULSE 64
[2018-05-17] MEDS ORDERED: COREG 6.256.25 MG/TA PO (19:31)
== END 2018-05-17 19:21 | disposition home or self-care (01) ==
LOC: COL.ER 17:31
PROVIDERS: Nurse Practitioner
DX: E87.5 Hyperkalemia (principal); E11.9 Type 2 diabetes mellitus without complications; I10 Essential (primary) hypertension; J44.9 Chronic obstructive pulmonary disease, unspecified; I51.9 Heart disease, unspecified; N28.9 Disorder of kidney and ureter, unspecified; Z79.4 Long term (current) use of insulin; Z79.51 Long term (current) use of inhaled steroids; Z79.01 Long term (current) use of anticoagulants; Z88.8 Allergy status to other drugs, medicaments and biological substances

== ENCOUNTER 2018-07-11 13:04 | Day surgery (SDC) | payer MEDICARE, OTHER ==
[~2018-07-11] VITALS: Ht 180.3 cm; Wt 111.8 kg
[~2018-07-11 13:04] MED LIST changes: -AQUAPHOR HEALING41% TP; +COLACE 100100 MG/CAP PO; +COREG 6.256.25 MG/TA PO; -FERROUS SU325 MG/TAB PO; +FERROUSAL325 MG PO; -FLONASE NASAL S16 GM NS; +FLONASEALLERGY NS; -MULTIPLE VITAMI1 CAP PO; +MULTIPLE VITAMI1 TA5 PO
[2018-07-11] MEDS ORDERED: TYLENOL SU650 MG/SUP RC (13:51)
[2018-07-11] MEDS ORDERED: AQUAPHOR OINTM396 GM TP (13:53)
[2018-07-11] MEDS ORDERED: ATIVAN 0.50.5 MG/TAB PO (13:53)
[2018-07-11] MEDS ORDERED: DULCOLAX S10 MG/SUPP RC (13:54)
[2018-07-11] MEDS ORDERED: COLACE 100100 MG/CAP PO (13:59)
[2018-07-11] MEDS ORDERED: PERIACTIN 4MG TA4 MG PO (14:01)
[2018-07-11] MEDS ORDERED: DEBROX OU (14:04)
[2018-07-11] MEDS ORDERED: ELIQUIS 5MG PO (14:05)
[2018-07-11] MEDS ORDERED: IMODIUM A-D2 MG PO (14:09)
[2018-07-11] MEDS ORDERED: LASIX 80MG TABL80 MG PO (14:12)
[2018-07-11] MEDS ORDERED: IPRATROPIUM BROM3 M1 IH (14:12)
[2018-07-11] MEDS ORDERED: LEVEMIR FLEX100 U/ML SQ (14:13)
[2018-07-11] MEDS ORDERED: LIPITOR 80MG80 MG PO (14:15)
[2018-07-11] MEDS ORDERED: MILK OF MA400 MG/52 PO (14:16)
[2018-07-11] MEDS ORDERED: MIRALAX PA17 GM/Dose PO (14:17)
[2018-07-11] MEDS ORDERED: MYLANTA 150 ML150 M1 PO (14:19)
[2018-07-11] MEDS ORDERED: NITROSTAT0.4 MG/TAB SL (14:19)
[2018-07-11] MEDS ORDERED: NOVOLOG 100U100 U/M1 SQ (14:21)
[2018-07-11] MEDS ORDERED: SENOKOT8.6 MG PO (14:25)
--- NOTE | 2018-07-11 14:25 | NUR ---
RASHAD Mason into see patient a this time.
--- NOTE | 2018-07-11 14:30 | NUR ---
Patient's blood sugar 92 at this time. Marlon SURVEY COMPILER notified and does not want D5NS hung, he wants the current NS to continue to be used.
--- NOTE | 2018-07-11 14:35 | NUR ---
Patient up to restroom at this time. Patient ambulates without any assistance and without any complications.
[2018-07-11 15:13] VITALS: BP 136/63; PULSE 67; TEMP 97.7
[2018-07-11 15:45] VITALS: BP 136/63; PULSE 67; TEMP 97.3
[2018-07-11 16:00] VITALS: BP 103/53; PULSE 66
--- NOTE | 2018-07-11 16:00 | NUR ---
PATIENT RETURNS FROM OR VIA CART TO BAY 4. AMBULATED WITH STEADY GAIT TO CHAIR. VS STARTED. REMAINS ON 4L O2 NASAL CANULA, O2 SAT 95%. ALERT AND ORIENTED X 4. DENIES PAIN OR NAUSEA. REQUESTS SPRITE AND CRACKERS. WARM BLANKET GIVEN. RESPIRATIONS EVEN AND UNLABORED. BOWEL SOUNDS AUDIBLE. SALINE LOCK. UNSTEADY HEART RATE, KNOWN BY PHYSICIAN. CALL LIGT IN REACH, WILL CONTINUE TO MONITOR.
--- NOTE | 2018-07-11 16:04 | NUR ---
O2 DECREASED TO 3L VIA NASAL CANULA. O2 SATS 98%. PATIENT STATES HE REMAINS ON 3L AT ALL TIMES. DENIES NEEDS. CALL LIGHT WITHIN REACH.
[2018-07-11 16:15] VITALS: BP 153/66; PULSE 66
--- NOTE | 2018-07-11 16:24 | NUR ---
VS REMAIN STABLE. O2 REMAINS AT 3L NASAL CANNULA. TOLERATED FOOD AND DRINK, DENIES NAUSEA. CALL LIGHT IN REACH. WILL CONTINUE TO MONITOR.
[2018-07-11 16:30] VITALS: BP 154/68; PULSE 68
[2018-07-11 17:00] VITALS: BP 136/68; PULSE 66; TEMP 98
--- NOTE | 2018-07-11 17:16 | NUR ---
PATIENT GIVEN DISCHARGE INFORMATION, VERBALIZED UNDERSTANDING. PATIENT ON HIS OWN 02 MACHINE NOW AT 3L NC. ASSISTED WITH DRESSING AND CLEANING UP. WHEELCHAIR ASSIST TO PATIENT ENTRANCE AND DAMIAN MARQUEZ.
== END 2018-07-11 17:00 ==
LOC: SDCO 13:04
DX: D50.0 Iron deficiency anemia secondary to blood loss (chronic) (principal); K92.1 Melena; E78.00 Pure hypercholesterolemia, unspecified; E11.9 Type 2 diabetes mellitus without complications; I25.10 Atherosclerotic heart disease of native coronary artery without angina pectoris; I11.0 Hypertensive heart disease with heart failure; I50.9 Heart failure, unspecified; J44.9 Chronic obstructive pulmonary disease, unspecified; G47.33 Obstructive sleep apnea (adult) (pediatric); I27.20 Pulmonary hypertension, unspecified; I48.91 Unspecified atrial fibrillation; E78.5 Hyperlipidemia, unspecified; F43.10 Post-traumatic stress disorder, unspecified; F31.9 Bipolar disorder, unspecified; N40.0 Benign prostatic hyperplasia without lower urinary tract symptoms; Z88.8 Allergy status to other drugs, medicaments and biological substances; Z79.82 Long term (current) use of aspirin; Z79.51 Long term (current) use of inhaled steroids; Z79.4 Long term (current) use of insulin; Z79.01 Long term (current) use of anticoagulants; Z87.891 Personal history of nicotine dependence; Z68.36 Body mass index [BMI] 36.0-36.9, adult
CPT/HCPCS: J2704; J7030

== ENCOUNTER → 2020-04-02 | Outpatient (REF) ==
[~2020-04-02] MED LIST changes: +AQUAPHOR OINTM396 GM TP; +DEBROX OU; +DULCOLAX S10 MG/SUPP RC; +IMODIUM A-D2 MG PO; +MILK OF MA400 MG/52 PO; +MYLANTA 150 ML150 M1 PO; +SENOKOT8.6 MG PO; +TYLENOL SU650 MG/SUP RC
[2020-04-02 10:41] LABS: CALCIUM 9.4 mg/dL (8.4-10.2); CREATININE, serum 2.36 (0.66-1.25); POTASSIUM 3.9 mmol/L (3.4-5.0)
== END ==
LOC: ZCOL.LAB 10:31
PROVIDERS: Internal Medicine
DX: E87.5 Hyperkalemia (principal)

== ENCOUNTER → 2020-04-05 | Outpatient (CLI) | payer MEDICARE, OTHER ==
[2020-04-05 16:24] LABS: COLLECTION METHOD CLEAN CATCH
[2020-04-05 16:30] LABS: PH 6 (5-8); SQUAMOUS EPITHELIAL 0-2 /hpf; URINE APPEARANCE Clear; URINE BACTERIA None Seen /hpf; URINE BILIRUBIN Negative (NEGATIVE); URINE BLOOD Negative (NEGATIVE); URINE COLOR Yellow; URINE GLUCOSE Negative (NEGATIVE); URINE KETONE Negative (NEGATIVE); URINE LEUKOCYTE ESTERASE Negative (NEGATIVE); URINE NITRATE Negative (NEGATIVE); URINE PROTEIN(semi-quant) Negative (NEGATIVE); URINE RBC 0-2 /hpf; URINE UROBILINOGEN Negative (NEGATIVE); URINE WBC 0-2 /hpf
[2020-04-05 16:41] LABS: BASO % 0.2 % (0.0-2.0); EOS % 0.2 % (0-4.0); GRAN % 83.7 % (42.2-75.2); LYMPH # 1.4 (1.2-3.4); LYMPH % 8.3 % (20.0-51.0); MEAN CELL VOLUME 77 fl (80.0-100.0); MEAN CORPUSCULAR HGB CONC 31 g/dl (33.0-37.0); MEAN PLATELET VOLUME 10.3 fl (7.4-10.4); MONO # 1.2 (0.1-0.6); MONO % 7.1 % (1.7-9.3); PLATELET COUNT 222 K/mm3 (130-400); REDCELL DISTRIBUTION WIDTH-CV 18.6 % (11.5-14.5)
[2020-04-05 16:42] LABS: HEMATOCRIT 29.4 % (42.0-52.0); MEAN CORPUSCULAR HEMOGLOBIN 24 pg (27.0-31.0)
[2020-04-05 17:14] LABS: CREATININE, serum 2.57 (0.66-1.25)
[2020-04-05 19:19] LABS: CALCIUM 9.2 mg/dL (8.4-10.2); POTASSIUM 3.4 mmol/L (3.4-5.0)
== END ==
LOC: ZCOL.LAB 16:22
PROVIDERS: Internal Medicine
DX: D63.1 Anemia in chronic kidney disease (principal); R30.0 Dysuria

== ENCOUNTER → 2020-10-02 | Outpatient (CLI) | payer MEDICARE, OTHER ==
[2020-10-02 11:31] LABS: BASO % 0.5 % (0.0-2.0); EOS # 0.5 (0.0-0.7); EOS % 8.3 % (0-4.0); GRAN # 3.1 (1.4-6.5); GRAN % 53.6 % (42.2-75.2); HEMOGLOBIN 8.9 g/dl (13.5-18.0); LYMPH # 1.7 (1.2-3.4); LYMPH % 28.4 % (20.0-51.0); MEAN CELL VOLUME 83 fl (80.0-100.0); MEAN CORPUSCULAR HEMOGLOBIN 24 pg (27.0-31.0); MEAN CORPUSCULAR HGB CONC 29 g/dl (33.0-37.0); MEAN PLATELET VOLUME 10.2 fl (7.4-10.4); MONO # 0.5 (0.1-0.6); MONO % 8.9 % (1.7-9.3); PLATELET COUNT 196 K/mm3 (130-400); RED BLOOD COUNT 3.66 M/mm3 (4.20-5.60); REDCELL DISTRIBUTION WIDTH-CV 17.2 % (11.5-14.5)
[2020-10-02 11:32] LABS: HEMATOCRIT 30.5 % (42.0-52.0)
[2020-10-02 11:56] LABS: ALBUMIN 3.4 gm/dL (3.5-5.0); BILIRUBIN,TOTAL 0.4 mg/dL (0.0-1.0); CALCIUM 8.7 mg/dL (8.4-10.2); POTASSIUM 3.3 mmol/L (3.4-5.0); TOTAL PROTEIN 6.6 gm/dL (6.4-8.2)
[2020-10-02 12:16] LABS: ERYTHROCYTE SEDIMENTATION RATE 5 mm/hr (0-30)
== END ==
LOC: ZCOL.LAB 10:49
PROVIDERS: Internal Medicine
DX: N18.9 Chronic kidney disease, unspecified (principal); J44.9 Chronic obstructive pulmonary disease, unspecified; D63.1 Anemia in chronic kidney disease

== ENCOUNTER → 2021-04-02 | Outpatient (CLI) | payer MEDICARE, OTHER | LOC: ZCOL.LAB 15:36 | DX: J34.9 Unspecified disorder of nose and nasal sinuses (principal); Z20.822 Contact with and (suspected) exposure to COVID-19 ==

== ENCOUNTER → 2021-07-12 | Outpatient (CLI) | payer MEDICARE, OTHER ==
[2021-07-12 12:44] LABS: BASO % 0.5 % (0.0-2.0); EOS # 0.3 K/mm3 (0.0-0.7); EOS % 3.9 % (0.0-4.0); GRAN # 6.1 K/mm3 (1.4-6.5); GRAN % 72.9 % (42.2-75.2); HEMATOCRIT 35.2 % (42.0-52.0); HEMOGLOBIN 11.1 g/dl (13.5-18.0); LYMPH # 1.2 K/mm3 (1.2-3.4); LYMPH % 14.1 % (20.0-51.0); MEAN CELL VOLUME 81 fl (80.0-100.0); MEAN CORPUSCULAR HEMOGLOBIN 26 pg (27-31); MEAN CORPUSCULAR HGB CONC 32 g/dl (33.0-37.0); MEAN PLATELET VOLUME 9.4 fl (7.4-10.4); MONO # 0.7 K/mm3 (0.1-0.6); MONO % 8.4 % (1.7-9.3); PLATELET COUNT 207 K/mm3 (130-400); RED BLOOD COUNT 4.35 M/mm3 (4.20-5.60); REDCELL DISTRIBUTION WIDTH-CV 15.3 % (11.5-14.5)
[2021-07-12 12:58] LABS: CALCIUM 8.9 mg/dL (8.4-10.2); CREATININE, serum 2.39 mg/dL (0.72-1.25); MAGNESIUM 2.4 mg/dL (1.6-2.6)
[2021-07-12 13:00] LABS: POTASSIUM 2.8 mmol/L (3.5-4.5)
== END ==
LOC: ZCOL.LAB 11:25
PROVIDERS: Internal Medicine
DX: E87.5 Hyperkalemia (principal)

== ENCOUNTER → 2021-07-13 | Outpatient (CLI) | payer MEDICARE, OTHER ==
[2021-07-13 12:35] LABS: CREATININE, serum 2.3 mg/dL (0.72-1.25); POTASSIUM 3.4 mmol/L (3.5-4.5)
== END ==
LOC: ZCOL.LAB 12:27
PROVIDERS: Internal Medicine
DX: E87.5 Hyperkalemia (principal)

== ENCOUNTER → 2021-07-14 | Outpatient (CLI) | payer MEDICARE, OTHER | LOC: ZCOL.LAB 17:58 | DX: Z20.822 Contact with and (suspected) exposure to COVID-19 (principal) ==

== ENCOUNTER → 2021-07-21 | Outpatient (CLI) | payer MEDICARE, OTHER ==
[2021-07-21 16:23] LABS: CALCIUM 9.2 mg/dL (8.4-10.2); CREATININE, serum 2.13 mg/dL (0.72-1.25); POTASSIUM 4.2 mmol/L (3.5-4.5)
== END ==
LOC: ZCOL.LAB 15:55
PROVIDERS: Internal Medicine
DX: E87.5 Hyperkalemia (principal)

== ENCOUNTER → 2021-09-04 | Outpatient (CLI) | payer MEDICARE, OTHER ==
[2021-09-04 12:17] LABS: BASO % 0.2 % (0.0-2.0); EOS # 0.2 K/mm3 (0.0-0.7); EOS % 2.1 % (0.0-4.0); GRAN % 76.2 % (42.2-75.2); HEMATOCRIT 34.8 % (42.0-52.0); HEMOGLOBIN 10.8 g/dl (13.5-18.0); LYMPH # 1.3 K/mm3 (1.2-3.4); LYMPH % 14.2 % (20.0-51.0); MEAN CELL VOLUME 83 fl (80.0-100.0); MEAN CORPUSCULAR HEMOGLOBIN 26 pg (27-31); MEAN CORPUSCULAR HGB CONC 31 g/dl (33.0-37.0); MEAN PLATELET VOLUME 9.8 fl (7.4-10.4); MONO # 0.6 K/mm3 (0.1-0.6); PLATELET COUNT 204 K/mm3 (130-400); RED BLOOD COUNT 4.21 M/mm3 (4.20-5.60); REDCELL DISTRIBUTION WIDTH-CV 16.3 % (11.5-14.5)
[2021-09-04 12:48] LABS: BILIRUBIN,TOTAL 0.6 mg/dL (0.2-1.2); CALCIUM 9.3 mg/dL (8.4-10.2); POTASSIUM 3.3 mmol/L (3.5-4.5)
[2021-09-04 13:00] LABS: ALBUMIN 3.5 gm/dL (3.4-4.8); CREATININE, serum 2.33 mg/dL (0.72-1.25); MAGNESIUM 2.3 mg/dL (1.6-2.6); TOTAL PROTEIN 7.6 gm/dL (6.2-8.1)
== END ==
LOC: ZCOL.LAB 12:10
PROVIDERS: Family Medicine
DX: N18.4 Chronic kidney disease, stage 4 (severe) (principal); J44.9 Chronic obstructive pulmonary disease, unspecified

== ENCOUNTER → 2021-11-18 | Outpatient (CLI) | payer MEDICARE, OTHER ==
[2021-11-18 17:03] LABS: CALCIUM 9.5 mg/dL (8.4-10.2); CREATININE, serum 1.94 mg/dL (0.72-1.25); POTASSIUM 4.1 mmol/L (3.5-4.5)
== END ==
LOC: ZCOL.LAB 16:15
PROVIDERS: Internal Medicine
DX: D63.1 Anemia in chronic kidney disease (principal); E11.59 Type 2 diabetes mellitus with other circulatory complications; E87.5 Hyperkalemia

== ENCOUNTER → 2022-02-23 | Outpatient (REF) | payer MEDICARE, OTHER ==
[~2022-02-23] MED LIST changes: +ALDACTONE 25MG25 M1 PO; +CEFTIN500 MG PO; +COREG 3.123.125 MG/T PO; +DESYREL 100MG100 MG PO; +DRIZALMA SPRINK60 MG PO; +LYRICA 75MG CAP75 MG PO; +MUCINEX 60600 MG/TA1 PO; +NEURONTIN100 MG/CAP PO; +NORVASC 5MG5 MG/TAB PO; +PAMELOR 10MG10 MG PO; +PRILOSEC 20MG20 MG PO; +ROXICODONE 55 MG/TAB PO; +TRIMPEX100 MG PO; +TYLENOL 325MG325 MG PO; +VENTOLIN0.09 MG IH; +VOLTAREN GEL 1%1 TU TP; +ZAROXOLYN5 MG PO
[2022-02-23 12:07] LABS: BASO % 0.3 % (0.0-2.0); EOS # 0.3 K/mm3 (0.0-0.7); EOS % 3.4 % (0.0-4.0); GRAN # 7.1 K/mm3 (1.4-6.5); GRAN % 78.2 % (42.2-75.2); LYMPH # 0.8 K/mm3 (1.2-3.4); LYMPH % 9.1 % (20.0-51.0); MEAN CELL VOLUME 83 fl (80.0-100.0); MEAN CORPUSCULAR HGB CONC 30 g/dl (33.0-37.0); MEAN PLATELET VOLUME 10.6 fl (7.4-10.4); MONO # 0.8 K/mm3 (0.1-0.6); MONO % 8.4 % (1.7-9.3); PLATELET COUNT 173 K/mm3 (130-400); RED BLOOD COUNT 3.74 M/mm3 (4.20-5.60); REDCELL DISTRIBUTION WIDTH-CV 17.3 % (11.5-14.5)
[2022-02-23 12:09] LABS: HEMATOCRIT 31.2 % (42.0-52.0); HEMOGLOBIN 9.5 g/dl (13.5-18.0); MEAN CORPUSCULAR HEMOGLOBIN 25 pg (27-31)
[2022-02-23 12:17] LABS: CALCIUM 9.1 mg/dL (8.4-10.2); CREATININE, serum 1.9 mg/dL (0.72-1.25); POTASSIUM 3.6 mmol/L (3.5-4.5)
== END ==
LOC: ZCOL.LAB 11:56
PROVIDERS: Internal Medicine
DX: I12.9 Hypertensive chronic kidney disease with stage 1 through stage 4 chronic kidney disease, or unspecified chronic kidney disease (principal); E11.22 Type 2 diabetes mellitus with diabetic chronic kidney disease; N18.4 Chronic kidney disease, stage 4 (severe); E11.59 Type 2 diabetes mellitus with other circulatory complications

== ENCOUNTER 2022-05-06 11:10 | Inpatient (IN) | payer MEDICARE, OTHER ==
[~2022-05-06] VITALS: Ht 180.3 cm; Wt 98.2 kg
[2022-05-06 00:20] VITALS: BP 112/46; PULSE 54
[2022-05-06 11:46] LABS: BASO % 0.1 % (0.0-2.0); EOS % 0.2 % (0.0-4.0); GRAN # 13.6 K/mm3 (1.4-6.5); GRAN % 88.8 % (42.2-75.2); HEMATOCRIT 38.2 % (42.0-52.0); HEMOGLOBIN 11.7 g/dl (13.5-18.0); LYMPH # 0.5 K/mm3 (1.2-3.4); LYMPH % 2.9 % (20.0-51.0); MEAN CELL VOLUME 83 fl (80.0-100.0); MEAN CORPUSCULAR HEMOGLOBIN 25 pg (27-31); MEAN CORPUSCULAR HGB CONC 31 g/dl (33.0-37.0); MEAN PLATELET VOLUME 10.1 fl (7.4-10.4); MONO # 1.1 K/mm3 (0.1-0.6); MONO % 7.5 % (1.7-9.3); PLATELET COUNT 193 K/mm3 (130-400); REDCELL DISTRIBUTION WIDTH-CV 16.5 % (11.5-14.5)
[2022-05-06 11:53] LABS: SQUAMOUS EPITHELIAL None Seen /hpf (0-10); URINE BACTERIA Rare /hpf (NONE SEEN); URINE RBC 0-2 /hpf (0-2)
[2022-05-06 11:58] LABS: PH 5.5 (5.0-8.5); URINE APPEARANCE Hazy (CLEAR/HAZY); URINE COLOR Yellow (YELLOW)
[2022-05-06 11:59] LABS: URINE BLOOD TRACE-INTACT (NEGATIVE); URINE GLUCOSE Negative (NEGATIVE); URINE KETONE Negative (NEGATIVE); URINE NITRATE Positive (NEGATIVE); URINE PROTEIN(semi-quant) 1+ (NEGATIVE); URINE UROBILINOGEN 0.2 E.U/dL (0.2-1.0)
[2022-05-06 12:03] LABS: ALANINE AMINOTRANSFERASE 11 U/L (0-55); ALBUMIN 3.6 gm/dL (3.4-4.8); ALKALINE PHOSPHATASE 69 U/L (40-150); ANION GAP 12 mmol/L (7-16); AST,SGOT 17 U/L (5-34); BILIRUBIN,TOTAL 0.6 mg/dL (0.2-1.2); BLOOD UREA NITROGEN 48 mg/dL (8-26); CALCIUM 9.6 mg/dL (8.4-10.2); CARBON DIOXIDE 28 mmol/L (23-31); CHLORIDE 96 mmol/L (98-107); CREATININE, serum 2.36 mg/dL (0.72-1.25); GLUCOSE 133 mg/dL (70-99); LIPASE 14 U/L (8-78); POTASSIUM 3.9 mmol/L (3.5-4.5); SODIUM 136 mmol/L (136-145); TOTAL PROTEIN 8.1 gm/dL (6.2-8.1)
[2022-05-06 12:10] LABS: TROPONIN-I < 0.010 ng/mL (0.00-0.033)
[2022-05-06 13:20] LABS: COLLECTION METHOD CATHETER
--- NOTE | 2022-05-06 14:48 | NUR ---
Patient arrived to the unit from ER via bed at 1426. Patient alert and oriented. VSS .Assessment completed. Patient's abdomen distented, noted +2 edema on right foot. No has mild skin rash on left foot. Tele monitor inplace. Patient oriented to room and the use of the call. Patient educate that he's on fall precaution and need to use the call knox for help. Patient verbalized understanding. Patient alarm activate for safety. Call within reach.
[2022-05-06 15:55] VITALS: BP 122/49; PULSE 63; TEMP 98
[2022-05-06] MEDS ORDERED: MIRALAX PA17 GM/Dose PO (17:17)
[2022-05-06] MEDS ORDERED: ZAROXOLYN5 MG PO (17:20)
--- NOTE | 2022-05-06 19:25 | NUR ---
PATIENT SIGNED CONSENT AND LEFT FOR OR FOR DECOMPRESSIVE COLONOSCOPY WITH RECTAL TUBE PLACEMENT AT 1841.
[2022-05-06 20:35] VITALS: BP 129/49; PULSE 57; TEMP 97.9
--- NOTE | 2022-05-06 20:35 | NUR ---
pt back from surgery. vss. pt drowsy but is easily arousable. pt on 3L nc. denies pain. rectal tube in place. ferreira to dd. IV in rac w LR infusing. no needs at this time. call light in reach.
--- NOTE | 2022-05-06 21:31 | NUR ---
CHECKED PT ROOM X3. PT AND BED ARE GONE FROM ROOM. THERE IS NO CPAP NOTED IN ROOM. PATIENTS CELL PHONE AND BISCUIT MACHINE OPERATOR WERE LEFT IN ROOM, UNTOUCHED.BID SVN TREATMENT MISSED DUE TO PT BEING UNAVAILABLE
[2022-05-06 22:20] VITALS: BP 124/49; PULSE 56
[2022-05-06 22:28] LABS: INR 2.1 (0.8-3.0); PROTHROMBIN TIME 23.9 SECONDS (9.7-12.8)
[2022-05-06 22:31] LABS: PARTIAL THROMBOPLASTIN TIME 40.2 SECONDS (26.0-37.0)
[2022-05-06 23:20] VITALS: BP 114/47; PULSE 56
[2022-05-07 03:46] VITALS: BP 125/49; PULSE 54; TEMP 97.4
[2022-05-07 06:47] LABS: BASO % 0.2 % (0.0-2.0); EOS # 0.1 K/mm3 (0.0-0.7); EOS % 0.6 % (0.0-4.0); GRAN # 13.5 K/mm3 (1.4-6.5); GRAN % 83.6 % (42.2-75.2); HEMOGLOBIN 10.3 g/dl (13.5-18.0); LYMPH % 6.4 % (20.0-51.0); MEAN CELL VOLUME 83 fl (80.0-100.0); MEAN CORPUSCULAR HEMOGLOBIN 26 pg (27-31); MEAN CORPUSCULAR HGB CONC 31 g/dl (33.0-37.0); MEAN PLATELET VOLUME 10.5 fl (7.4-10.4); MONO # 1.4 K/mm3 (0.1-0.6); MONO % 8.6 % (1.7-9.3); PLATELET COUNT 167 K/mm3 (130-400); RED BLOOD COUNT 4.03 M/mm3 (4.20-5.60); REDCELL DISTRIBUTION WIDTH-CV 16.1 % (11.5-14.5)
[2022-05-07 06:52] LABS: HEMATOCRIT 33.5 % (42.0-52.0)
[2022-05-07 06:54] LABS: CALCIUM 9.1 mg/dL (8.4-10.2); CREATININE, serum 2.12 mg/dL (0.72-1.25); POTASSIUM 3.4 mmol/L (3.5-4.5)
[2022-05-07 08:21] VITALS: BP 132/48; PULSE 57; TEMP 97.1
--- NOTE | 2022-05-07 09:16 | NUR ---
AVIVA contacted the patient's daughter, Rekha Arambula (ph#[phone]), to discuss discharge plan. The patient resides [facility]. The patient's PCP is Dr. Orlando Simmons and the patient has a DPOA-HC in EMR that designates Rekha and Ariadna Miranda. Rekha states that Ariadna is the patient's late . She states that the patient has an updated DPOA-HC that designates her and her sister, Sari. She states that she can email a copy of the new DPOA-HC to this SW. AVIVA provided Rekha with this SW's email address. Rekha and Sari both live in [place]. Rekha states that the plan is for the patient to return back to [facility] upon discharge. AVIVA contacted and faxed updates to Alyssa at [facility]. *Discharge plan: [facility]*
--- NOTE | 2022-05-07 09:22 | NUR ---
Initial visit; Patient thanked Archeologist for looking in on him and offering prayer and God's blessings. Patient recalls having Archeologist visit the last time he was hospitalized and wants Archeologist to visit while he is here at our hospital.
[2022-05-07 11:30] VITALS: BP 127/47; PULSE 62; TEMP 98.6
--- NOTE | 2022-05-07 12:14 | NUR ---
PATIENT ALERT AND ORIENTED X4. VSS. PATIENT REPORTS ABDOMEN BEING DISTENDED. BOWEL SOUNDS HYPOACTIVE. LEFT HAND INT. RIGHT AC HAS LR RUNNING AT 75ML/HOUR. COREG HELD DUE TO HR. PATIENT ON TELE RUNNING KENDRICK (50'S). PATIENT TOLERATING CLD. RECTAL TUBE IN PLACE WITH NO OUTPUT OVERNIGHT OR YET THIS SHIFT. STUDENT NURSE ADMINISTERING MEDS AND HANDLING PATIENT CARE. KERN TO DD WITH DECENT OUTPUT.
--- NOTE | 2022-05-07 12:53 | NUR ---
SW received the patient's DPOA-HC, via email. SW placed a copy of the document in the patient's chart. The patient's DPOA-HC is his daughter, Rekha. The alternate is his other daughter, Sari.
[2022-05-07 16:00] VITALS: BP 116/35; PULSE 65; TEMP 97.6
[2022-05-07 20:22] VITALS: BP 125/79; PULSE 67; TEMP 98.1
--- NOTE | 2022-05-07 21:30 | NUR ---
pt resting in bed. reports increased pn to abdomen a 5/10 in the RLQ. abdomen distended. bowel sounds present. pt denies n/v and denies passing gas. pt on 2l nasal cannula. bs 138 and does not require insulin per ss. vss and tele in place. fall precautions implemented. heparin infusing at 17.5ml/hr in the left hand. LR infusing at 75ml/hr in the right ac. ferreira to dd w cloudy yellow urine ouput. meds given and assessment complete. no other needs at this time. call light in reach.
--- NOTE | 2022-05-07 22:06 | NUR ---
notified KYREE raya of pts increased pn. she notified dr. koehler. new orders implemented, discussed w pt.
[2022-05-08] VITALS (8 sets, daily range): BP systolic 123–180; BP diastolic 44–64; PULSE 57–64; TEMP 97.4–99.1
--- NOTE | 2022-05-08 00:17 | NUR ---
PTT lab result 131.9. decrease heparin rate to 16.5 per protocol. will check level again at 0600. pt asleep w CPAP on.
[2022-05-08 06:37] LABS: BASO % 0.2 % (0.0-2.0); EOS # 0.1 K/mm3 (0.0-0.7); GRAN # 9.5 K/mm3 (1.4-6.5); HEMOGLOBIN 10.9 g/dl (13.5-18.0); LYMPH # 0.7 K/mm3 (1.2-3.4); LYMPH % 6.3 % (20.0-51.0); MEAN CELL VOLUME 83 fl (80.0-100.0); MEAN CORPUSCULAR HEMOGLOBIN 26 pg (27-31); MEAN CORPUSCULAR HGB CONC 31 g/dl (33.0-37.0); MEAN PLATELET VOLUME 10.6 fl (7.4-10.4); MONO # 0.8 K/mm3 (0.1-0.6); MONO % 7.1 % (1.7-9.3); PLATELET COUNT 169 K/mm3 (130-400); RED BLOOD COUNT 4.26 M/mm3 (4.20-5.60); REDCELL DISTRIBUTION WIDTH-CV 16.2 % (11.5-14.5)
[2022-05-08 06:40] LABS: HEMATOCRIT 35.4 % (42.0-52.0)
[2022-05-08 06:58] LABS: CALCIUM 9.4 mg/dL (8.4-10.2); CREATININE, serum 1.92 mg/dL (0.72-1.25)
[2022-05-08 07:02] LABS: POTASSIUM 2.9 mmol/L (3.5-4.5)
--- NOTE | 2022-05-08 07:22 | NUR ---
Critical K+ called to Jessica Holley, orders entered. I also reviewed heparin drip with pharmacy, patient goal & no change need to be made.
--- NOTE | 2022-05-08 09:00 | NUR ---
Patient repositioned in bed. Air mattress applied to bed for comfort. Patient offered to get out of bed, but did not feel he was able to due to rectal tube being in place. Perkins cath also in place, cath cares given. Patient is NPO mouth swabs and mouth moisture provided. His abdomen remains distended. Ivx2 with heparin drip and k+ protocol. Will monitor.
--- NOTE | 2022-05-08 10:44 | NUR ---
AVIVA staffed with the PA. The patient may be having surgery. They consulted cardiology for clearance. The patient is to tentatively be here through the weekend. AVIVA notified and faxed updates to Alyssa at [facility].
--- NOTE | 2022-05-08 11:13 | NUR ---
rounded plan of care reviewed. Cardiology rounding on patient as well.
--- NOTE | 2022-05-08 13:18 | NUR ---
0350 report recieved from TRAVIS Hendrickson at this time. This [facility] student nurse discussed plan of care and care coordination with primary daysksft nurse, TRAVIS Lind. 9147 assessment completed (see shift assessment). Patient denies pain at this time. Discussed plan of care, patient agreeable. All questions answered. Call light within reach. Will continue to monitor.
--- NOTE | 2022-05-08 13:29 | NUR ---
echo completed. no results from suppository yt. K+ replacement continues
--- NOTE | 2022-05-08 14:09 | NUR ---
CRITICAL HIGH K+ CALLED TO DEBORAH, ALSO DISCUSSED WITH MINO IN PHARMACY & GOING TO REDRAWN PTT TO CHECK FOR ACCURACY. hEPARIN DRIP STOPPED
--- NOTE | 2022-05-08 15:30 | NUR ---
Heparin drip resumed after Ptt results still elevated. Rate decreased to 15ml/hr verified with Sulma. Patient has been up to bedside commode, he had a large watery stool & passed a large amount of flatus. Patient assisted with pericares. Patient very weak on his feet. Walker gaitbelt used.
--- NOTE | 2022-05-08 17:38 | NUR ---
given update on patient. He is resting in bed. Minimal complaints, was wishing he could have ice cream for dinner. K+ completed. Will monitor.
--- NOTE | 2022-05-08 19:35 | NUR ---
Patient sleeping & bedside report to Tammi to resume cares
--- NOTE | 2022-05-08 20:26 | NUR ---
Did not want to use the hospitals CPAP when offered. Prefers to use O2 tonight.
[2022-05-09 03:53] VITALS: BP 124/53; PULSE 54; TEMP 98.7
--- NOTE | 2022-05-09 06:05 | NUR ---
RECEIVED REPORT FROM DAY SHIFT NURSE. PT IS RESTING IN BED WITH CALL LIGHT WITHIN REACH. CHECKED IV DRIPS WITH DAY SHIFT NURSE BED SIDE.
[2022-05-09 06:44] LABS: BASO % 0.2 % (0.0-2.0); EOS # 0.2 K/mm3 (0.0-0.7); EOS % 2.4 % (0.0-4.0); GRAN # 7.2 K/mm3 (1.4-6.5); HEMOGLOBIN 10.7 g/dl (13.5-18.0); LYMPH # 0.9 K/mm3 (1.2-3.4); LYMPH % 9.4 % (20.0-51.0); MEAN CELL VOLUME 82 fl (80.0-100.0); MEAN CORPUSCULAR HEMOGLOBIN 26 pg (27-31); MEAN CORPUSCULAR HGB CONC 32 g/dl (33.0-37.0); MEAN PLATELET VOLUME 10.7 fl (7.4-10.4); MONO # 0.9 K/mm3 (0.1-0.6); MONO % 9.7 % (1.7-9.3); PLATELET COUNT 171 K/mm3 (130-400); RED BLOOD COUNT 4.17 M/mm3 (4.20-5.60); REDCELL DISTRIBUTION WIDTH-CV 16.1 % (11.5-14.5)
[2022-05-09 07:00] LABS: CALCIUM 9.3 mg/dL (8.4-10.2); CREATININE, serum 1.86 mg/dL (0.72-1.25); POTASSIUM 3.2 mmol/L (3.5-4.5)
[2022-05-09 07:41] VITALS: BP 143/60; PULSE 58; TEMP 97.8
--- NOTE | 2022-05-09 07:59 | NUR ---
CRITICAL HIGH PTT-HEPARIN DRIP STOPPED. raTE TO BE DECREASED 2.5ML & RESUMED IN ONE HOUR.
[2022-05-09 11:42] VITALS: BP 130/53; PULSE 56; TEMP 97.6
[2022-05-09 17:32] VITALS: BP 109/58; PULSE 82; TEMP 98.9
[2022-05-09 20:16] VITALS: BP 107/57; PULSE 61; TEMP 97.7
--- NOTE | 2022-05-09 20:36 | NUR ---
Patient has done well today. He is up in chair. Minimal complains of pain or discomfort. He was progressed to full liquids and tolerated without nausea. Bowels continue to work, he had a large loose incontinent stool today that CNAs assisted with pericares. Patient did refuse am dulcolax. Patient worked with therapy today and did well. Heparin drip continues to left hard, adjustments made today per protocol. K+ replaced today as well per protocol. Patients daughters visited today and they were given update on plan of care & questions answered. Patient has been in positive spirits. Vss, tele on. Bedside report to Suly who resumes cares
--- NOTE | 2022-05-09 22:08 | NUR ---
PT IN RECLINER AT BEDSIDE. REFUSES DULCOLAX SUPPOSITORY, BUT DID DRINK MIRALAX. HAS HEPARIN GTT TO LEFT HAND INFUSING WITHOUT PROBLEM, LR TO RAC INFUSING WITHOUT REDNESS OR SWELLING. PTT=91.7, NO CHANGE TO HEPARIN GTT. KERN TO BSD, ABD DISTENDED WITH ACTIVE BOWEL SOUNDS. SCDS ON.
--- NOTE | 2022-05-09 23:00 | NUR ---
PT HAS LARGE STOOL ON BSC AND ASSISTED TO BED.
[2022-05-09 23:13] VITALS: BP 130/53; PULSE 58; TEMP 97.6
[2022-05-10 03:31] VITALS: BP 147/56; PULSE 61; TEMP 98
--- NOTE | 2022-05-10 06:00 | NUR ---
PT RESTING IN BED. LABS DRAWN, WILL MONITOR HEPARIN GTT BY PTT RESULTS.
--- NOTE | 2022-05-10 06:30 | NUR ---
appears to be dozing, awakens easily, bedside shift report received from TRAVIS Tubbs
[2022-05-10 06:47] LABS: BASO % 0.3 % (0.0-2.0); EOS # 0.4 K/mm3 (0.0-0.7); EOS % 4.6 % (0.0-4.0); GRAN # 5.5 K/mm3 (1.4-6.5); GRAN % 70.3 % (42.2-75.2); HEMOGLOBIN 10.8 g/dl (13.5-18.0); LYMPH % 12.9 % (20.0-51.0); MEAN CELL VOLUME 82 fl (80.0-100.0); MEAN CORPUSCULAR HEMOGLOBIN 25 pg (27-31); MEAN CORPUSCULAR HGB CONC 31 g/dl (33.0-37.0); MEAN PLATELET VOLUME 10.2 fl (7.4-10.4); MONO # 0.9 K/mm3 (0.1-0.6); MONO % 11.5 % (1.7-9.3); PLATELET COUNT 167 K/mm3 (130-400); RED BLOOD COUNT 4.28 M/mm3 (4.20-5.60)
[2022-05-10 06:48] LABS: HEMATOCRIT 35.1 % (42.0-52.0)
--- NOTE | 2022-05-10 06:55 | NUR ---
called lab to check on status of PTT results, drawn at 0536 but no results at this time, was told it had just been received in the lab
[2022-05-10 07:08] VITALS: BP 137/51; PULSE 59; TEMP 97.8
[2022-05-10 07:08] LABS: CALCIUM 9.2 mg/dL (8.4-10.2); CREATININE, serum 1.74 mg/dL (0.72-1.25); POTASSIUM 3.1 mmol/L (3.5-4.5)
--- NOTE | 2022-05-10 08:15 | NUR ---
breakfast at bedside, awakened for breakfast, denies needs at this time
--- NOTE | 2022-05-10 09:40 | NUR ---
resting in bed, cardiopulmonary in to work with patient, full assessment now completed, see interventions for further info, physical therapy now in to work with patient
--- NOTE | 2022-05-10 10:15 | NUR ---
ambulated out to goyal with therapy, then back to room and onto bedside commode
[2022-05-10 11:30] VITALS: BP 150/52; BP 150/552; PULSE 56; TEMP 97.4
--- NOTE | 2022-05-10 12:26 | NUR ---
sitting up in bed having lunch, denies pain or needs
--- NOTE | 2022-05-10 14:08 | NUR ---
resting in bed talking on the phone, denies needs
[2022-05-10 15:46] VITALS: BP 153/58; PULSE 58; TEMP 98.3
--- NOTE | 2022-05-10 17:41 | NUR ---
had supper and tolerated well, up to bedside commode to try and have bowel movement
--- NOTE | 2022-05-10 18:48 | NUR ---
bedside shift report given to TRAVIS Tubbs
[2022-05-10 20:00] VITALS: BP 141/53; PULSE 59; TEMP 97.4
--- NOTE | 2022-05-10 20:00 | NUR ---
PT SITTING IN RECLINER AT BEDSIDE. HAS IVF INFUSING TO RAC AND HEP GTT TO LT HAND. BOTH SITES WITHOUT REDNESS OR SWELLING. PT IS ALERT AND ORIENTED. HAS OXYGEN AT 2L/NC. ABD DISTENDED, SOFT. REPORTS GETTING TO EAT 2 MEALS TODAY. REPORTS 2 LOOSE STOOLS DURING THE DAY. KERN PATENT WITH YELLOW URINE.
--- NOTE | 2022-05-10 22:10 | NUR ---
HS MEDS GIVEN INCLUDING THE DULCOLAX SUPPOSITORY. PT ASSISTED TO BED WITH WALKER AND ONE ASSIST. GAIT SLOW AND STEADY.
[2022-05-11] VITALS (12 sets, daily range): BP systolic 132–152; BP diastolic 46–64; PULSE 57–71; TEMP 97.6–98.2
--- NOTE | 2022-05-11 01:00 | NUR ---
PT HAS LARGE LIQUID STOOL ON BEDPAN AFTER DULCOLAX SUPPOSITORY GIVEN AT 2200.
--- NOTE | 2022-05-11 04:00 | NUR ---
HAS BEEN NPO FOR HIRAL SCAN TODAY. RESTING WELL. NO FURTHER BM'S THIS SHIFT. CONCHA WITH EXCELLENT OUTPUT.
[2022-05-11 06:43] LABS: BASO % 0.4 % (0.0-2.0); EOS # 0.4 K/mm3 (0.0-0.7); EOS % 5.5 % (0.0-4.0); GRAN # 4.9 K/mm3 (1.4-6.5); GRAN % 65.6 % (42.2-75.2); HEMOGLOBIN 11.1 g/dl (13.5-18.0); LYMPH # 1.3 K/mm3 (1.2-3.4); LYMPH % 16.6 % (20.0-51.0); MEAN CELL VOLUME 81 fl (80.0-100.0); MEAN CORPUSCULAR HEMOGLOBIN 26 pg (27-31); MEAN CORPUSCULAR HGB CONC 32 g/dl (33.0-37.0); MEAN PLATELET VOLUME 10.1 fl (7.4-10.4); MONO # 0.8 K/mm3 (0.1-0.6); MONO % 11.2 % (1.7-9.3); PLATELET COUNT 172 K/mm3 (130-400); RED BLOOD COUNT 4.34 M/mm3 (4.20-5.60); REDCELL DISTRIBUTION WIDTH-CV 15.8 % (11.5-14.5)
[2022-05-11 06:47] LABS: HEMATOCRIT 35.1 % (42.0-52.0)
[2022-05-11 07:08] LABS: CALCIUM 9.3 mg/dL (8.4-10.2); CREATININE, serum 1.51 mg/dL (0.72-1.25)
[2022-05-11 07:11] LABS: POTASSIUM 2.8 mmol/L (3.5-4.5)
--- NOTE | 2022-05-11 07:17 | NUR ---
Hospitalist team made aware of critical potassium 2.8. k+ protocol resumes
--- NOTE | 2022-05-11 07:38 | NUR ---
Patient resting in bed. Npo for stress test today, radiology nurse has been in to see patient. Patient denies pain. Abdomen soft, rounded. Bowels audible, but he does deny passing flatus. I did call lab, awaiting PTT results for Heparin drip. Scds Ble. K+ started. Will monitor.
--- NOTE | 2022-05-11 10:00 | NUR ---
Glass Finisher met with Patient at bedside to discuss discharge planning. Patient reported that he continues his intention to discharge back to [facility] with PT/OT. SW will continue to follow.
--- NOTE | 2022-05-11 13:50 | NUR ---
Patient sitting up in chair post tamika scan. awaiting results to see if gretchen can eat or not. He remains NPO, but interested in eating. Heparin drip per orders. Rac IV with electrolye replacement per orders. Maddie remains to DD. Hallie dickey.
--- NOTE | 2022-05-11 14:00 | NUR ---
Patient completed lexiscan. Cardiology verfied patient can eat, verified low fiber diet. Lunch ordered & am medications given.
--- NOTE | 2022-05-11 15:00 | NUR ---
rounded, plan of care reviewed. Orders obtained.
--- NOTE | 2022-05-11 19:48 | NUR ---
Patient sitting up in chair. K+ completed. Bowel prep started, miralax mixed with blue gatorade. Bedside commode at bedside. Patietn tolerted his dinner and aware he will be clear liquid diet until 0600 then NPO for procedue. Patient has updated his family on plan of care,he has been on the phone with them today. Bedside report to Rose to resume cares & stressed that Heparin drip to stopped at 0900
[2022-05-12] VITALS (13 sets, daily range): BP systolic 149–166; BP diastolic 56–68; PULSE 62–86; TEMP 97.4–97.7
[2022-05-12 05:19] LABS: BASO % 0.3 % (0.0-2.0); EOS # 0.4 K/mm3 (0.0-0.7); EOS % 4.5 % (0.0-4.0); GRAN # 5.3 K/mm3 (1.4-6.5); GRAN % 66.6 % (42.2-75.2); HEMOGLOBIN 10.9 g/dl (13.5-18.0); LYMPH # 1.3 K/mm3 (1.2-3.4); LYMPH % 16.4 % (20.0-51.0); MEAN CELL VOLUME 83 fl (80.0-100.0); MEAN CORPUSCULAR HEMOGLOBIN 25 pg (27-31); MEAN CORPUSCULAR HGB CONC 30 g/dl (33.0-37.0); MEAN PLATELET VOLUME 10.1 fl (7.4-10.4); MONO # 0.9 K/mm3 (0.1-0.6); MONO % 11.2 % (1.7-9.3); PLATELET COUNT 180 K/mm3 (130-400); RED BLOOD COUNT 4.34 M/mm3 (4.20-5.60)
[2022-05-12 05:28] LABS: HEMATOCRIT 35.8 % (42.0-52.0)
[2022-05-12 05:34] LABS: CALCIUM 9.3 mg/dL (8.4-10.2); CREATININE, serum 1.6 mg/dL (0.72-1.25); MAGNESIUM 1.8 mg/dL (1.6-2.6); POTASSIUM 3.4 mmol/L (3.5-4.5)
--- NOTE | 2022-05-12 06:24 | NUR ---
BOWEL PREP started @ 1900 last noc, no BM yet, second dose of miralax given this am, pt also tx for potassium of 3.3, no Ssi required this shift, LR infusing @ 75cc/hr when zosyn not infusing, heparin infusing @ 11cc/hr, PTT this am at goal, no changes made. pt up in recliner all noc, on 2L O2 per NC
--- NOTE | 2022-05-12 09:00 | NUR ---
Heparn gtt stopped at this time per dr order.
--- NOTE | 2022-05-12 11:40 | NUR ---
Patient got up to bathroom with assist of family and had a fall in the bathroom. Denies pain. Denies hitting head. Has a small red toby on mid back but denies pain at that site. Patient states that she
--- NOTE | 2022-05-12 11:43 | NUR ---
Spoke with Dr Serrano about bowel prep status. Patient only had one stool so far.
--- NOTE | 2022-05-12 15:58 | NUR ---
Patient to OR at this time.
--- NOTE | 2022-05-12 19:10 | NUR ---
pt returned to room 343 from PACU, currently on 3L O2 per NC, epidural placed per anesthesia for pain control, pt instructed on use, IVF infusing per PIV in RAC @ 75 cc/hr, ferreira draining clear, yellow urine. awake and alert. midline incision from umbilicus to lower abd, dsg CDI. no bowel sounds present.
[2022-05-13 04:54] VITALS: BP 133/50; PULSE 75; TEMP 98.6
[2022-05-13 07:04] LABS: CALCIUM 8.9 mg/dL (8.4-10.2); CREATININE, serum 1.3 mg/dL (0.72-1.25); POTASSIUM 3.8 mmol/L (3.5-4.5)
--- NOTE | 2022-05-13 07:10 | NUR ---
pain controlled with epidural, benadryl given x2 for itching, IVF infusing per PIV @ 75cc/hr, ferreira with good urine output. lower half of abd dressing saturated with bright red blood, reinforced with 4x4 gauze x1 and abd x1. no bowel sounds heard yet.
[2022-05-13 07:37] LABS: BASO # 0.1 K/mm3 (0.0-0.2); BASO % 0.3 % (0.0-2.0); GRAN # 15.1 K/mm3 (1.4-6.5); GRAN % 88.2 % (42.2-75.2); HEMATOCRIT 35.1 % (42.0-52.0); HEMOGLOBIN 10.8 g/dl (13.5-18.0); LYMPH # 0.8 K/mm3 (1.2-3.4); LYMPH % 4.4 % (20.0-51.0); MEAN CELL VOLUME 82 fl (80.0-100.0); MEAN CORPUSCULAR HEMOGLOBIN 25 pg (27-31); MEAN CORPUSCULAR HGB CONC 31 g/dl (33.0-37.0); MEAN PLATELET VOLUME 10.3 fl (7.4-10.4); MONO % 5.8 % (1.7-9.3); PLATELET COUNT 197 K/mm3 (130-400); RED BLOOD COUNT 4.29 M/mm3 (4.20-5.60); REDCELL DISTRIBUTION WIDTH-CV 16.2 % (11.5-14.5)
[2022-05-13 07:52] VITALS: BP 131/50; PULSE 71; TEMP 98
--- NOTE | 2022-05-13 08:00 | NUR ---
PATIENT IS A&O. VSS ON TELE. REPORTS MOD DISCOMFORT IN ABD. EPIDURAL INFUSING AT 6CC/HR. NURSING EDUCATED PATIENT ABOUT EPIDURAL BUTTON AND PATIENT PUSHED IT. ABD MIDLINE NOTED DISTAL, HALF DOLLAR SIZE BLOODY DRAINAGE WHICH WAS REINFORCED WITH 4X4'S AND TAPE. ABD IS DISTENDED WITH HYPO BOWL SOUNDS NOTED. PATIENT IS NOT PASSING FLATUS YET. KERN TO DD WITH SMALL AMOUNTS OF URINE NOTED. NPO WITH SIPS & CHIPS ONLY. MEDS GIVEN WITH SIPS PER ORDERS. IV FLUIDS INFUSING VIA PUMP INTO RIGHT AC IV. IV ABX INFUSING VIA PUMP INTO LEFT HAND IV. PATIENT LIVES AT [facility] AND IS MOSTLY WC BOUND. 2 MAX ASSIST. PT/OT/ST CONSULTED. HEAD TO TOE ASSESSMENT COMPLETE. NO OTHER NEEDS AT THIS TIME. CALL LIGHT IN REACH. BED ALARM ON.
--- NOTE | 2022-05-13 08:12 | NUR ---
0730 pt awake in bed. Did head to toe shift assessment, pt c/o of itching at epidural site, rates pain 8/10, educated on epidural use. Inspected dressing, noted blood present underneath dressing, no blood noted on outside of dressing. 2 IVs present, one recieving fluids. Skin intact otherwise
[2022-05-13 11:06] VITALS: BP 139/46; PULSE 70; TEMP 99.9
--- NOTE | 2022-05-13 15:18 | NUR ---
Healthcare Applications Analyst contacted Alyssa silverman [facility] and faxed clinical updates.
[2022-05-13 16:00] VITALS: BP 136/55; PULSE 63; TEMP 97.8
--- NOTE | 2022-05-13 19:30 | NUR ---
RECEIVED CHANGE OF SHIFT REPORT FROM DAY SHIFT RN. PATIENT RESTING IN BED WITH CALL LIGHT IN REACH. EPIDURAL PUMP/TUBING IN PLACE, BASAL RATE CONTINUES WITH DEMAND PT DOSING BUTTON IN REACH FOR PATIENT. PATIENT BREATHING ON ROOM AIR WITH NO PROBLEMS. KERN IN PLACE.
--- NOTE | 2022-05-13 20:00 | NUR ---
PATIENT REPORTED HAS PASSED LIQUID FROM RECTUM.
[2022-05-13 20:23] VITALS: BP 124/80; PULSE 74; TEMP 97.5
[2022-05-13 23:37] VITALS: BP 137/53; PULSE 65; TEMP 97.4
[2022-05-14 03:43] VITALS: BP 134/52; PULSE 64; TEMP 97.6
--- NOTE | 2022-05-14 04:14 | NUR ---
PER R.T., OXYGEN BLEED IN PER CPAP INCREASED TO 6LPM, WITH REPORTED OBSERVATIONS OF NONLABORED BREATHING AND RESTING QUIETLY.
[2022-05-14 06:54] LABS: BASO % 0.1 % (0.0-2.0); EOS # 0.2 K/mm3 (0.0-0.7); EOS % 1.3 % (0.0-4.0); GRAN # 10.4 K/mm3 (1.4-6.5); GRAN % 77.9 % (42.2-75.2); HEMOGLOBIN 10.5 g/dl (13.5-18.0); LYMPH # 1.5 K/mm3 (1.2-3.4); LYMPH % 11.3 % (20.0-51.0); MEAN CELL VOLUME 84 fl (80.0-100.0); MEAN CORPUSCULAR HEMOGLOBIN 26 pg (27-31); MEAN CORPUSCULAR HGB CONC 31 g/dl (33.0-37.0); MEAN PLATELET VOLUME 10.5 fl (7.4-10.4); MONO # 1.1 K/mm3 (0.1-0.6); MONO % 8.5 % (1.7-9.3); PLATELET COUNT 204 K/mm3 (130-400); REDCELL DISTRIBUTION WIDTH-CV 16.4 % (11.5-14.5)
[2022-05-14 06:55] LABS: HEMATOCRIT 34.4 % (42.0-52.0)
[2022-05-14 07:04] LABS: CALCIUM 9.5 mg/dL (8.4-10.2); CREATININE, serum 1.38 mg/dL (0.72-1.25); POTASSIUM 4.4 mmol/L (3.5-4.5)
--- NOTE | 2022-05-14 07:06 | NUR ---
CHANGE OF SHIFT REPORT GIVEN TO DAY SHIFT RNSKYLER.
[2022-05-14 07:31] VITALS: BP 131/55; PULSE 63; TEMP 98.1
--- NOTE | 2022-05-14 07:59 | NUR ---
PT IN GOOD SPIRITS THIS AM. SHIFT ASSESSMENT PERFORMED. DRAINAGE NOTED ON ABDOMINAL INCISION, NONE OUTSIDE OF LINE DRAWN BY PREVIOUS RN. EPIDURAL IN PLACE AND INTACT. FINE CRACKLES NOTED IN BASES BILATERALLY. LR RUNNING IN RIGHT FOREARM IV AT 75 ML/HR. HYPOACTIVE BOWEL SOUNDS NOTED. Pt DENIES PAIN OTHER THAN "SORENESS" AT INCISION SITE. NO FURTHER REQUESTS AT THIS TIME, BED IN LOWEST POSITION, CALL LIGHT WITHIN REACH.
--- NOTE | 2022-05-14 10:53 | NUR ---
DURING AM BATH, THIS RN STUDENT NOTED A PATCH OF ERYTHEMA AT Pt'S SACRUM WITH WHAT APPEARED TO BE A SMALL SKIN TEAR, MOISTURE BARRIER APPLIED AND PRIMARY RN NOTIFIED.
--- NOTE | 2022-05-14 11:12 | NUR ---
PER TRAVIS HOLLAND'S REQUETS, THIS RN STUDENT PLACED ALLYVEN SACRAL PAD TO Pt'S SACRUM.
--- NOTE | 2022-05-14 11:19 | NUR ---
AGREE WITH STUDENT ROZ'S ASSESSMENTS AND NOTES THIS SHIFT AFTER REVIWING CHARTING.
[2022-05-14 11:41] VITALS: BP 136/56; PULSE 60; TEMP 98.5
--- NOTE | 2022-05-14 14:38 | NUR ---
PT UP TO RECLINER WITH THERAPY AT THIS TIME. PT HAS STARTED TO COUGH WITH COARSE LUNG SOUNDS. WILL UP DATE MEDICAL TEAM.
[2022-05-14 15:14] VITALS: BP 141/52; PULSE 62; TEMP 98.3
--- NOTE | 2022-05-14 19:59 | NUR ---
SHIFT REPORT FROM SKYLER ROBLES. PATIENT IN CHAIR ON ROOM ENTRY. HS MEDS PER EMAR. C/O MINIMAL ACHEY PAIN TO LOWER ABD. BOWEL SOUNDS HYPOACTIVE TO ALL QUADRANTS EXCEPT RUQ. RUQ SOUNDS AUDIBLE. ABD DISTENDED AND FIRM. ABD MIDLINE CDI WITH ABD AND 4X4S. KERN TO DD WITH CLEAR YELLOW OUTPUT. TOLERATING CLEAR TRAY AT THIS TIME. EPIDURAL INFUSING AT 5 ML/HR. DENIES ADDITIONAL NEEDS AT THIS TIME. CALL LIGHT IN REACH.
[2022-05-14 20:06] VITALS: BP 127/50; PULSE 99; TEMP 97.6
[2022-05-14 23:58] VITALS: BP 116/55; PULSE 69; TEMP 99
[2022-05-15 03:26] VITALS: BP 125/48; PULSE 63; TEMP 99.3
[2022-05-15 06:48] LABS: BASO % 0.3 % (0.0-2.0); EOS # 0.3 K/mm3 (0.0-0.7); EOS % 2.5 % (0.0-4.0); GRAN # 9.1 K/mm3 (1.4-6.5); GRAN % 75.5 % (42.2-75.2); HEMOGLOBIN 10.5 g/dl (13.5-18.0); LYMPH # 1.3 K/mm3 (1.2-3.4); LYMPH % 10.5 % (20.0-51.0); MEAN CELL VOLUME 85 fl (80.0-100.0); MEAN CORPUSCULAR HEMOGLOBIN 25 pg (27-31); MEAN CORPUSCULAR HGB CONC 30 g/dl (33.0-37.0); MEAN PLATELET VOLUME 10.3 fl (7.4-10.4); MONO # 1.3 K/mm3 (0.1-0.6); MONO % 10.5 % (1.7-9.3); PLATELET COUNT 191 K/mm3 (130-400); RED BLOOD COUNT 4.13 M/mm3 (4.20-5.60); REDCELL DISTRIBUTION WIDTH-CV 16.6 % (11.5-14.5)
[2022-05-15 06:57] VITALS: BP 150/61; PULSE 74; TEMP 98.9
[2022-05-15 06:59] LABS: CALCIUM 9.2 mg/dL (8.4-10.2); CREATININE, serum 1.51 mg/dL (0.72-1.25); POTASSIUM 4.3 mmol/L (3.5-4.5)
--- NOTE | 2022-05-15 07:09 | NUR ---
PT AWAKE AND ALERT THIS AM. SHIFT ASSESSMENT PERFORMED. HYPOACTIVE BOWEL SOUNDS NOTED. COMPLIANS OF TENDERNESS AROUND ABDOMINAL INCISION. OTHER VS WNL. BED IN LOWEST POSIITON, CALL LIGHT WITHIN REACH. NO FURTHER REQUESTS AT THIS TIME.
--- NOTE | 2022-05-15 08:00 | NUR ---
Pt. sitting up in bed. Pt. is A&Ox3, assessment complete. INT to lt. hand patent. IV to rt. ac patent, IV fluids infusing per orders. Pt. denies pain at this time. Dressing to abd. CDI. Pt. denies further needs.
--- NOTE | 2022-05-15 09:55 | NUR ---
THIS RN STUDENT HELPED WITH PHYSICAL THERAPY, DURING WHICH, Pt BECAME INCREASINGLY WEAK AND WAS UNABLE TO STAND ON OWN. Pt NEEDED TO BE SAT DOWN IN RECLINER TO AVOID A FALL. PHYSICAL THERAPIST STATED THAT THIS WAS NEW FOR THE Pt. WHILE UP, HIS SACRAL DRESSING WAS CHANGED BY THIS RN STUDENT.
--- NOTE | 2022-05-15 11:00 | NUR ---
Talked with Marlon Connors CRNA. OK to have TRAVIS Sutherland remove epidual.
[2022-05-15 11:25] VITALS: BP 129/67; PULSE 66; TEMP 97.8
--- NOTE | 2022-05-15 11:26 | NUR ---
ABDOMINAL DRESSING NOTED TO BE UNATTACHED. REPLACED WITH AQUACELL PER TRAVIS MUÑIZ'S REQUEST.
--- NOTE | 2022-05-15 15:26 | NUR ---
Updates were faxed to Alyssa at [facility].
[2022-05-15 15:34] VITALS: BP 129/52; PULSE 66; TEMP 97.7
[2022-05-15 18:08] VITALS: BP 140/97; PULSE 135
[2022-05-15 19:35] VITALS: BP 140/56; PULSE 68; TEMP 98.1
--- NOTE | 2022-05-15 20:00 | NUR ---
SHIFT REPORT FROM ANTONINO ROBLES. PATIENT IN CHAIR ON ROOM ENTRY. ALERT AND ORIENTED BUT DROWSY. HS MEDS PER EMAR. DENIES NEED FOR PAIN MEDS AT THIS TIME. MIDLINE DRESSING CDI. ABD IS DISTENDED BUT BOWEL SOUNDS PRESENT. PATIENT STATES HES PASSED SOME GAS. 2 ASSIST WITH WALKER BACK TO BED, AND CURRENTLY RESTING IN BED EYES CLOSED, RR EVEN AND UNLABORED. CALL LIGHT IN REACH.
[2022-05-16] VITALS (7 sets, daily range): BP systolic 135–159; BP diastolic 51–59; PULSE 63–68; TEMP 97.6–98.2
[2022-05-16 06:52] LABS: BASO % 0.2 % (0.0-2.0); EOS # 0.2 K/mm3 (0.0-0.7); EOS % 1.9 % (0.0-4.0); GRAN % 83.3 % (42.2-75.2); HEMOGLOBIN 10.5 g/dl (13.5-18.0); LYMPH # 0.9 K/mm3 (1.2-3.4); LYMPH % 7.4 % (20.0-51.0); MEAN CELL VOLUME 82 fl (80.0-100.0); MEAN CORPUSCULAR HEMOGLOBIN 25 pg (27-31); MEAN CORPUSCULAR HGB CONC 31 g/dl (33.0-37.0); MEAN PLATELET VOLUME 10.1 fl (7.4-10.4); MONO # 0.8 K/mm3 (0.1-0.6); MONO % 6.4 % (1.7-9.3); PLATELET COUNT 202 K/mm3 (130-400); RED BLOOD COUNT 4.17 M/mm3 (4.20-5.60); REDCELL DISTRIBUTION WIDTH-CV 16.2 % (11.5-14.5)
[2022-05-16 06:56] LABS: HEMATOCRIT 34.3 % (42.0-52.0)
[2022-05-16 07:00] LABS: CALCIUM 8.8 mg/dL (8.4-10.2); CREATININE, serum 1.32 mg/dL (0.72-1.25); POTASSIUM 3.5 mmol/L (3.5-4.5)
--- NOTE | 2022-05-16 09:00 | NUR ---
Pt. sitting up in bed. Pt. is A&OX3, assessment complete. INT to lt. hand patent. Abd. midline incision, CDI with airstrip. Pt. reports pain at a 5 on pain scale, giving pain meds per orders. Pt. denies further needs.
--- NOTE | 2022-05-16 20:00 | NUR ---
SHIFT REPORT FROM ANTONINO ROBLES. PATIENT IN CHAIR ON ROOM ENTRY. ALERT AND ORIENTED. HS MEDS PER EMAR. MIDLINE DRESSING CHANGED. DRAINAGE NOTED, AIRSTRIP APPLIED. TOLERATED HALF OF HIS DINNER. C/O MILD INTERMITTENT PAIN 5/10 TO LOWER ABD BUT DENIES PAIN CONTROL NEEDS. BOWEL SOUNDS HYPOACTIVE AND DENIES BOWEL SOUNDS. DENIES ADDITIONAL NEEDS. CALL LIGHT IN REACH.
--- NOTE | 2022-05-17 01:41 | NUR ---
Patient care, medication administration and nursing documentation occurred during a Daylight Savings Time Change.
[2022-05-17 03:22] VITALS: BP 134/55; PULSE 62; TEMP 98.3
[2022-05-17 06:51] LABS: BASO % 0.2 % (0.0-2.0); EOS # 0.3 K/mm3 (0.0-0.7); EOS % 2.6 % (0.0-4.0); GRAN # 8.8 K/mm3 (1.4-6.5); GRAN % 78.5 % (42.2-75.2); HEMOGLOBIN 10.9 g/dl (13.5-18.0); LYMPH # 1.1 K/mm3 (1.2-3.4); LYMPH % 9.7 % (20.0-51.0); MEAN CELL VOLUME 82 fl (80.0-100.0); MEAN CORPUSCULAR HEMOGLOBIN 26 pg (27-31); MEAN CORPUSCULAR HGB CONC 31 g/dl (33.0-37.0); MEAN PLATELET VOLUME 9.9 fl (7.4-10.4); MONO # 0.9 K/mm3 (0.1-0.6); MONO % 8.3 % (1.7-9.3); PLATELET COUNT 228 K/mm3 (130-400); RED BLOOD COUNT 4.23 M/mm3 (4.20-5.60); REDCELL DISTRIBUTION WIDTH-CV 16.1 % (11.5-14.5)
[2022-05-17 06:53] LABS: HEMATOCRIT 34.7 % (42.0-52.0)
[2022-05-17 07:00] LABS: CREATININE, serum 1.27 mg/dL (0.72-1.25); POTASSIUM 3.7 mmol/L (3.5-4.5)
[2022-05-17 07:59] VITALS: BP 141/72; PULSE 68; TEMP 98.3
--- NOTE | 2022-05-17 10:00 | NUR ---
Pt. sitting up in chair. Pt. is A&OX3, assessment complete. INT to lt. hand patent. Pt. denies pain at this time. Abd. incision CDI. Pt. denies further needs, call light within reach.
--- NOTE | 2022-05-17 11:25 | NUR ---
AVIVA faxed updates to Rylan at [facility] for possible DC today. Awaiting from her for DC time.
[2022-05-17 12:34] VITALS: BP 158/61; PULSE 67; TEMP 97.5
--- NOTE | 2022-05-17 14:07 | NUR ---
Orders for discharge. Packet prepared for [facility]. System Support Specialist has arrived. Pt. dressed. INT discontinued from lt. hand. Report called to [facility] nurse. Pt. escorted out.
== END 2022-05-17 14:15 | DRG 853 ==
LOC: COL.ER 11:10 → SURG 12:35
PROVIDERS: Emergency Medicine; Nurse Practitioner Family; Physician Assistant; Student in an Organized Health Care Education/Training Program; Surgery; ADMIT Hospitalist
PROC: 0D7N8ZZ Dilation of Sigmoid Colon, Via Natural or Artificial Opening Endoscopic (ICD-10-PCS; 2022-05-06)
PROC: 0D9P80Z Drainage of Rectum with Drainage Device, Via Natural or Artificial Opening Endoscopic (ICD-10-PCS; 2022-05-06)
PROC: 5A09557 Assistance with Respiratory Ventilation, Greater than 96 Consecutive Hours, Continuous Positive Airway Pressure (ICD-10-PCS; 2022-05-07)
PROC: 0DBN0ZZ Excision of Sigmoid Colon, Open Approach (ICD-10-PCS; principal; 2022-05-12 15:00)
DX: A41.9 Sepsis, unspecified organism (principal); G93.41 Metabolic encephalopathy; K56.2 Volvulus; I13.0 Hypertensive heart and chronic kidney disease with heart failure and stage 1 through stage 4 chronic kidney disease, or unspecified chronic kidney disease; I50.32 Chronic diastolic (congestive) heart failure; N17.9 Acute kidney failure, unspecified; N39.0 Urinary tract infection, site not specified; J44.9 Chronic obstructive pulmonary disease, unspecified; E11.22 Type 2 diabetes mellitus with diabetic chronic kidney disease; I27.20 Pulmonary hypertension, unspecified; I48.0 Paroxysmal atrial fibrillation; F31.9 Bipolar disorder, unspecified; K59.09 Other constipation; N18.30 Chronic kidney disease, stage 3 unspecified; D64.9 Anemia, unspecified; E87.6 Hypokalemia; I25.10 Atherosclerotic heart disease of native coronary artery without angina pectoris; G47.33 Obstructive sleep apnea (adult) (pediatric); E11.42 Type 2 diabetes mellitus with diabetic polyneuropathy; B96.20 Unspecified Escherichia coli [E. coli] as the cause of diseases classified elsewhere; Z20.822 Contact with and (suspected) exposure to COVID-19; F43.10 Post-traumatic stress disorder, unspecified; E11.51 Type 2 diabetes mellitus with diabetic peripheral angiopathy without gangrene; I08.1 Rheumatic disorders of both mitral and tricuspid valves; E66.01 Morbid (severe) obesity due to excess calories; E78.5 Hyperlipidemia, unspecified; Z88.8 Allergy status to other drugs, medicaments and biological substances; Z91.030 Bee allergy status; Z99.81 Dependence on supplemental oxygen; Z87.891 Personal history of nicotine dependence; Z79.82 Long term (current) use of aspirin; Z79.01 Long term (current) use of anticoagulants; Z79.899 Other long term (current) drug therapy; Z23 Encounter for immunization
CPT/HCPCS: A9500; J1100; J1200; J1644; J1815; J2250; J2270; J2370; J2405; J2543; J2704; J2785; J3010; J3475; J3480; J7120

== ENCOUNTER → 2022-05-06 | Outpatient (REF) | payer MEDICARE, OTHER ==
[2022-05-06 15:50] LABS: BASO % 0.2 % (0.0-2.0); EOS # 0.1 K/mm3 (0.0-0.7); EOS % 0.4 % (0.0-4.0); GRAN # 14.6 K/mm3 (1.4-6.5); GRAN % 88.1 % (42.2-75.2); HEMATOCRIT 40.7 % (42.0-52.0); HEMOGLOBIN 12.2 g/dl (13.5-18.0); LYMPH # 0.6 K/mm3 (1.2-3.4); LYMPH % 3.8 % (20.0-51.0); MEAN CELL VOLUME 85 fl (80.0-100.0); MEAN CORPUSCULAR HEMOGLOBIN 26 pg (27-31); MEAN CORPUSCULAR HGB CONC 30 g/dl (33.0-37.0); MEAN PLATELET VOLUME 10.4 fl (7.4-10.4); MONO # 1.2 K/mm3 (0.1-0.6); MONO % 7.2 % (1.7-9.3); PLATELET COUNT 183 K/mm3 (130-400); RED BLOOD COUNT 4.79 M/mm3 (4.20-5.60); REDCELL DISTRIBUTION WIDTH-CV 16.4 % (11.5-14.5)
[2022-05-06 15:54] LABS: ALBUMIN 4.1 gm/dL (3.4-4.8); BILIRUBIN,TOTAL 0.6 mg/dL (0.2-1.2); CALCIUM 9.8 mg/dL (8.4-10.2); CREATININE, serum 2.38 mg/dL (0.72-1.25); POTASSIUM 4.1 mmol/L (3.5-4.5); TOTAL PROTEIN 8.2 gm/dL (6.2-8.1)
== END ==
LOC: ZCOL.LAB 15:19
PROVIDERS: Internal Medicine
DX: N18.4 Chronic kidney disease, stage 4 (severe) (principal)

== ENCOUNTER → 2023-02-08 | Outpatient (REF) | payer MEDICARE, OTHER ==
[2023-02-08 11:20] LABS: BASO % 0.2 % (0.0-2.0); COLLECTION METHOD CLEAN CATCH; EOS # 0.1 K/mm3 (0.0-0.7); EOS % 0.9 % (0.0-4.0); GRAN # 11.2 K/mm3 (1.4-6.5); HEMATOCRIT 39.2 % (42.0-52.0); LYMPH # 0.7 K/mm3 (1.2-3.4); LYMPH % 5.1 % (20.0-51.0); MEAN CELL VOLUME 86 fl (80.0-100.0); MEAN CORPUSCULAR HEMOGLOBIN 26 pg (27-31); MEAN CORPUSCULAR HGB CONC 31 g/dl (33.0-37.0); MEAN PLATELET VOLUME 10.6 fl (7.4-10.4); MONO # 1.1 K/mm3 (0.1-0.6); MONO % 8.4 % (1.7-9.3); PLATELET COUNT 127 K/mm3 (130-400); RED BLOOD COUNT 4.57 M/mm3 (4.20-5.60)
[2023-02-08 11:21] LABS: PH 5.5 (5.0-8.5); SQUAMOUS EPITHELIAL 0-2 /hpf (0-10); URINE APPEARANCE Clear (CLEAR/HAZY); URINE BLOOD Negative (NEGATIVE); URINE COLOR Yellow (YELLOW); URINE GLUCOSE Negative (NEGATIVE); URINE KETONE Negative (NEGATIVE); URINE NITRATE Negative (NEGATIVE); URINE PROTEIN(semi-quant) Negative (NEGATIVE); URINE RBC None Seen /hpf (0-2); URINE UROBILINOGEN 0.2 E.U/dL (0.2-1.0)
[2023-02-08 12:43] LABS: ALBUMIN 3.4 gm/dL (3.4-4.8); BILIRUBIN,TOTAL 0.6 mg/dL (0.2-1.2); CALCIUM 9.1 mg/dL (8.4-10.2); CREATININE, serum 2.26 mg/dL (0.72-1.25); POTASSIUM 3.3 mmol/L (3.5-4.5)
== END ==
LOC: ZCOL.LAB 11:04
PROVIDERS: Internal Medicine
DX: N39.0 Urinary tract infection, site not specified (principal); I12.9 Hypertensive chronic kidney disease with stage 1 through stage 4 chronic kidney disease, or unspecified chronic kidney disease; N18.4 Chronic kidney disease, stage 4 (severe); E87.5 Hyperkalemia

== ENCOUNTER → 2023-03-02 | Outpatient (CLI) | payer MEDICARE, OTHER | LOC: COL.RAD 12:52 | DX: R13.12 Dysphagia, oropharyngeal phase (principal) ==

== ENCOUNTER 2023-07-03 07:58 | Inpatient (IN) | payer MEDICARE, OTHER ==
[~2023-07-03] VITALS: Ht 180.3 cm; Wt 91.8 kg
[~2023-07-03 07:58] MED LIST changes: -TYLENOL 325MG325 MG PO; +TYLENOL 325MG325 MG RC
[2023-07-03] MEDS ORDERED: Albuterol/Ipratropium 3 MG-0.5 MG/3 ML Neb Soln IH ONE ×2 (08:15→10:00)
[2023-07-03] MEDS ORDERED: methylPREDNISolone Sod Succ 125 MG/2 ML VIAL IV ONE (08:15)
[2023-07-03 08:21] LABS: BASO % 0.2 % (0.0-2.0); EOS # 0.3 K/mm3 (0.0-0.7); EOS % 3.8 % (0.0-4.0); GRAN # 6.5 K/mm3 (1.4-6.5); GRAN % 75.1 % (42.2-75.2); HEMATOCRIT 37.3 % (42.0-52.0); HEMOGLOBIN 11.3 g/dl (13.5-18.0); LYMPH # 1.1 K/mm3 (1.2-3.4); LYMPH % 12.2 % (20.0-51.0); MEAN CELL VOLUME 88 fl (80.0-100.0); MEAN CORPUSCULAR HEMOGLOBIN 27 pg (27-31); MEAN CORPUSCULAR HGB CONC 30 g/dl (33.0-37.0); MEAN PLATELET VOLUME 10.3 fl (7.4-10.4); MONO # 0.7 K/mm3 (0.1-0.6); MONO % 8.2 % (1.7-9.3); PLATELET COUNT 184 K/mm3 (130-400); RED BLOOD COUNT 4.22 M/mm3 (4.20-5.60); REDCELL DISTRIBUTION WIDTH-CV 15.9 % (11.5-14.5)
[2023-07-03 08:39] LABS: PROTHROMBIN TIME 21.4 SECONDS (9.7-12.8)
[2023-07-03 08:40] LABS: ALBUMIN 2.9 g/dL (3.4-4.8); BILIRUBIN,TOTAL 0.4 mg/dL (0.2-1.2); CREATININE, serum 2.31 mg/dL (0.72-1.25); POTASSIUM 3.8 mEq/L (3.5-4.5); TOTAL PROTEIN 8.3 g/dl (6.2-8.1)
[2023-07-03 08:46] LABS: TROPONIN-I 0.013 ng/mL (0.00-0.033)
[2023-07-03] MEDS ORDERED: BIOTENE DRY M1000 ML PO (10:52)
[2023-07-03] MEDS ORDERED: GENTLE LAXATIVE10 MG RC (10:53)
[2023-07-03 11:32] LABS: COLLECTION METHOD CATHETER
[2023-07-03] MEDS ORDERED: OMNICEF 300MG300 MG PO (11:34)
[2023-07-03 11:37] LABS: PH 5.5 (5.0-8.5); URINE APPEARANCE CLEAR (CLEAR/HAZY); URINE BLOOD NEGATIVE (NEGATIVE); URINE COLOR YELLOW (YELLOW); URINE GLUCOSE NEGATIVE (NEGATIVE); URINE KETONE NEGATIVE (NEGATIVE); URINE NITRATE NEGATIVE (NEGATIVE); URINE PROTEIN(semi-quant) NEGATIVE (NEGATIVE); URINE UROBILINOGEN 0.2 E.U/dL (0.2-1.0)
[2023-07-03] MEDS ORDERED: MUCUS RELIEF200 MG PO (11:47)
[2023-07-03] MEDS ORDERED: TYLENOL 325MG325 MG PO ×2 (12:29)
[2023-07-03] MEDS ORDERED: ROXICODONE 55 MG/TAB PO (12:31)
[2023-07-03] MEDS ORDERED: K-DUR20 MEQ PO (12:32)
[2023-07-03] MEDS ORDERED: PREVAGEN PO (12:35)
[2023-07-03] MEDS ORDERED: ALDACTONE 25MG25 M1 PO (12:37)
[2023-07-03] MEDS ORDERED: RT SPIRIVA18 MCG PO (12:38)
[2023-07-03 13:47] VITALS: BP 161/70; PULSE 72; TEMP 97.4
--- NOTE | 2023-07-03 14:26 | NUR ---
PT TRANSFERRED FROM ED TO MEDICAL FLOOR VIA STRETCHER. PT ORIENTED TO THE ROOM, FALL RISK ITEMS IN PLACE. PT DENIES PAIN AT THIS TIME. ASSESSMEENT AND INTAKE DONE. ZOSYN INFUSION IN LEFT AC PER ORDER AND PT ON 4L OXYMASK. PT DENIES NEEDS. BED IN LOWEST POSITION, CALL LIGHT IN REACH, BED ALARM ON
[2023-07-03 15:14] VITALS: BP 142/60; PULSE 72; TEMP 98
[2023-07-03] MEDS ORDERED: Albuterol/Ipratropium 3 MG-0.5 MG/3 ML Neb Soln IH PRN (15:30)
[2023-07-03] MEDS ORDERED: AFRIN 15 ML15 ML NS (15:40)
[2023-07-03] MEDS ORDERED: LAC-HYDRIN LOT 225GM TP (15:42)
[2023-07-03] MEDS ORDERED: Ondansetron 4 MG/2 ML VIAL IV PRN (15:45)
[2023-07-03] MEDS ORDERED: Acetaminophen 500 MG TAB PO PRN (15:45)
[2023-07-03] MEDS ORDERED: ENULOSE10 GM/151 PO (16:03)
[2023-07-03] MEDS ORDERED: GOOD NEIGH1200 MG/15 PO (16:06)
[2023-07-03] MEDS ORDERED: [UNRECOGNIZED DRUG - SUPPLY] PO (16:07)
[2023-07-03] MEDS ORDERED: REFRESH OPTIVE10 M2 OP (16:17)
[2023-07-03] MEDS ORDERED: GAS AID MAXIMU125 MG PO (16:21)
[2023-07-03] MEDS ORDERED: TESSALON P100 MG/CAP PO (16:24)
[2023-07-03] MEDS ORDERED: TRIAMCINOLONE A15 G3 TP (16:28)
[2023-07-03] MEDS ORDERED: Benzonatate 100 MG CAP PO PRN (16:30)
[2023-07-03] MEDS ORDERED: Tiotropium 18 MCG **** subs to Tiotropium 5 mcg IH SCH (16:32)
[2023-07-03] MEDS ORDERED: Magnes Hydrox (MOM) 80 MG/ML 30 ML CUP PO PRN (16:45)
[2023-07-03] MEDS ORDERED: Carboxymethylcellulose PF Ophth 0.4 ML DROPPERETTE OP PRN (16:45)
[2023-07-03 17:00] VITALS: BP_SYST 142
[2023-07-03] MEDS ORDERED: Amoxicillin/Clavulanate K+ 500/125 MG TAB PO SCH (17:00)
[2023-07-03] MEDS ORDERED: Insulin Lispro (HumaLOG) SQ SCH (17:00)
[2023-07-03] MEDS ORDERED: Albuterol/Ipratropium 3 MG-0.5 MG/3 ML Neb Soln IH SCH (19:00)
[2023-07-03] MEDS ORDERED: Formoterol 20 MCG,Budesonide 0.5 MG IH SCH (19:00)
[2023-07-03 19:03] VITALS: BP 168/65; PULSE 77; TEMP 97.5
[2023-07-03 21:00] VITALS: BP_SYST 175
[2023-07-03] MEDS ORDERED: Pregabalin 75 MG CAP PO SCH (21:00)
[2023-07-03] MEDS ORDERED: traZODone 100 MG TAB PO SCH (21:00)
[2023-07-03] MEDS ORDERED: Polyethylene Glycol 3350 17 GM PDS PO SCH (21:00)
[2023-07-03] MEDS ORDERED: Nortriptyline 10 MG CAP PO SCH (21:00)
[2023-07-03] MEDS ORDERED: Omeprazole 20 MG **** subs to Pantoprazole 40 MG PO SCH (21:00)
[2023-07-03] MEDS ORDERED: Cyproheptadine 4 MG TAB PO SCH (21:00)
[2023-07-03] MEDS ORDERED: Apixaban 5 MG TAB PO SCH (21:00)
[2023-07-03] MEDS ORDERED: guaiFENesin 200 MG TAB PO SCH (21:00)
[2023-07-03] MEDS ORDERED: Furosemide 80 MG TAB PO SCH (21:00)
[2023-07-03] MEDS ORDERED: Gabapentin 100 MG CAP PO SCH (21:00)
[2023-07-03] MEDS ORDERED: Carvedilol 3.125 MG TAB PO SCH (21:00)
--- NOTE | 2023-07-03 23:18 | NUR ---
NURSING SHIFT ASSESSMENT COMPLETED. THE PATIENT WAS ALERT AND ORIENTED. THE PATIENT IS WC BOUND AT BASELINE. THE PATIENTS MEDICATIONS WERE DISCUSSED AT [facility] AND ALL QUESTIONS WERE ANSWERED. THE PATIENT RATED HIS BILATERAL KNEE PAIN AT 4/10. VOLTAREN CREAM APPLIED PER ORDERS. FRESH WATER WAS PROVIDED. NO OTHER NEEDS AT THIS TIME. CALL LIGHT WITHIN REACH, BED IN LOW POSITION.
[2023-07-03 23:24] VITALS: BP 175/68; PULSE 76; TEMP 97.7
[2023-07-04] VITALS (9 sets, daily range): BP systolic 131–151; BP diastolic 64–78; PULSE 66–73; TEMP 97.2–98.4
[2023-07-04] MEDS ORDERED: Multivitamin TAB PO SCH (09:00)
[2023-07-04] MEDS ORDERED: Cholecalciferol (Vit D3) 1000 Units TAB PO SCH (09:00)
[2023-07-04] MEDS ORDERED: DULoxetine 60 MG CAP PO SCH (09:00)
[2023-07-04] MEDS ORDERED: amLODIPine 5 MG TAB PO SCH (09:00)
[2023-07-04] MEDS ORDERED: Tiotropium 2.5 MCG Respimat MDI IH SCH (09:00)
[2023-07-04] MEDS ORDERED: Lactulose Oral Soln 10 GM/15 ML CUP PO PRN (09:00)
[2023-07-04] MEDS ORDERED: Ferrous Sulfate 325 MG TAB PO SCH (09:00)
[2023-07-04] MEDS ORDERED: Amiodarone 200 MG TAB PO SCH ×2 (09:00)
[2023-07-04] MEDS ORDERED: Docusate Sodium 100 MG CAP PO SCH (09:00)
[2023-07-04] MEDS ORDERED: Spironolactone 25 MG TAB PO SCH (09:00)
[2023-07-04] MEDS ORDERED: predniSONE 20 MG TAB PO SCH (09:00)
--- NOTE | 2023-07-04 09:41 | NUR ---
SW met with patient to complete intake. Patient provides he resides at [facility] in [facility]. Patient provides his point of contact is daughter Rekha Arambula [phone]. Patient provides he primarily utilizes a wheelchair and obtains assistance from staff with his care needs. PCP is Dr. Simmons, and pharmacy is [facility]. Patient provides that his daugther is appointed as DPOA/HC and plans to return to [facility] upon discharge. SW will continue to follow. Discharge plan: back to [facility]
[2023-07-04] MEDS ORDERED: Dextrose (Glucose) 15 GM (4 x 3.75 GM) Chewable TABLET PACK PO PRN (10:00)
[2023-07-04] MEDS ORDERED: Glucagon 1 MG VIAL IM PRN (10:00)
[2023-07-04] MEDS ORDERED: Insulin Glargine-ygfn (Lantus) SQ SCH (10:00)
[2023-07-04] MEDS ORDERED: Dextrose 50% Water 25 GM/50 ML SYRINGE IV PRN (10:00)
--- NOTE | 2023-07-04 17:15 | NUR ---
PATIENT HAVING DRY COUGH, REWUESTED FOR COUGH MEDICINE. PHYSICIAN CONSTACT. ORDERS IN
--- NOTE | 2023-07-04 18:55 | NUR ---
PATIENT AWAKE AND ALERT, SITTING UP IN BED. PAETINT DENIES ANY NEEDS OR COMPLAINTS AT THIS TIME. CALL LIGHT WITHIN REACH.
--- NOTE | 2023-07-04 19:00 | NUR ---
PATIENT SITTING UP IN BED WATCHING TV WITH NO FAMILY PRESENT WITH NO ACUTE DISTRESS NOTED. PATIENT ON 3 LITERS OF OXYGEN VIA NC. INT TO RIGHT AC INTACT. PATIENT DENIES ANY NEEDS AT THIS TIME. PATIENT CARE ASSUME FROM [facility]. BED IN LOW POSITION WITH WHEELS LOCKED WITH RAILS UP X3 AND CALL LIGHT WITHIN REACH.
--- NOTE | 2023-07-04 19:16 | NUR ---
PATIENT ASLEEP, EASILY AROUSES TO NAME. PATIENT DENIES ANY NEEDS OR COMPLAINTS AT THIS TIME. CALL LIGHT WITHIN REACH.
--- NOTE | 2023-07-04 21:49 | NUR ---
PATIENT SITTING UP IN BED WATCING TV WITH RESPIRATORY THERAPY IN ROOM WITH NO ACUTE DISTRESS NOTED. PATIENT GETTING BREATHING TREATMENT. PATIENT ON 3 LITERS OF OXYGEN VIA NC. INT TO RIGHT AC INTACT WITH NO COMPLICATIONS NOTED. ASSESSMENT AND MEDICATION ADMINISTRATION COMPLETED AT THIS TIME. PATIENT TOLERATED WELL. PATIENT REQUESTED DIET SPRIE AND WAS GIVEN. PATIENT DENIES ANY OTHER NEEDS AT THIS TIME. BED IN LOW POSITION WITH WHEELS LOCKED WITH RAILS UP X3 AND CALL LIGHT WITHIN REACH.
[2023-07-05] VITALS (13 sets, daily range): BP systolic 109–160; BP diastolic 56–78; PULSE 56–74; TEMP 97.3–98.6
--- NOTE | 2023-07-05 07:17 | NUR ---
SPO2 ON 3LPM 96%, SOMETIMES PRODUCTIVE COUGH, BS COARSE T/O, ELZBIETA WEL RT TX.
[2023-07-05] MEDS ORDERED: predniSONE 20 MG TAB PO SCH (09:00)
--- NOTE | 2023-07-05 09:00 | NUR ---
PT LAYING IN BED UPON ENTERING. ASSESSMENT DONE, MEDS GIVEN PER ORDER IN APPLESAUCE. INT TO RIGHT AC PATENT. CPAP REMOVED DURING BEDSIDE REPORTS AND NASAL CANNULA CURRENLY ON 3L. PT REPORTS FEELING "BUBBLING" IN ABDOMEN AND WORRIED ABOUT "FLUID IN MY ABDOMEN". PTS ABDOMEN IS DISTENED AND HOSPITALIST AWARE. PT JUST FINISHED BREAKFAST AND BOWEL SOUNDS AUDIBLE IN ALL QUADRANTS. PT DENIES ABDOMINAL PAIN WITH OR WITHOUT TOUCH. BED IN LOWEST POSITION, CALL LIGHT IN REACH, BED ALARM ON
--- NOTE | 2023-07-05 09:36 | NUR ---
FERROUS SULFATE NOT STOCKED IN MAY. PHARMACY CALLED AND THIS NURSE NOTIFIED THAT ITLL BE UP SHORTLY. DR QUINONEZ CALLED AND TOLD THIS NURSE THAT SPEECH CONSULT PLACCED AND TO CALL AND NOTIFY THEM. [facility] CALLED AND ARE AWARE ON CONSULT.
--- NOTE | 2023-07-05 09:55 | NUR ---
Initial visit; Patient thanked Draw Frame Operator for looking in on him and offering prayer and God's blessings. Patient remembers being Draw Frame Operator's patient on a former hospital stay. Draw Frame Operator prays he will get better soon.
--- NOTE | 2023-07-05 14:28 | NUR ---
Sandwich And Drink Cart Operator contacted Alyssa at [facility] and faxed clinical updates. also contacted patient's daughter, Rekha to check in and provide update. Patient not ready for discharge yet today. Discharge Plan: [facility]
[2023-07-05] MEDS ORDERED: Furosemide 80 MG TAB PO SCH (16:00)
--- NOTE | 2023-07-05 18:38 | NUR ---
REPORT GIVEN TO TRAVIS MO
--- NOTE | 2023-07-05 20:44 | NUR ---
Assessment complete. Sitting up in chair watching TV. A&Ox3. Denies pain/nausea/shortness of breath. VS stable. States he hasnt had a bowel movement since Wednesday. Abdomen is distended with active bowel sounds. Was up to commode and passed a lot of gas and had a small liquid BM. Requesting MOM and Mirilax. Given per dr order. Currently on 3L/NC with adequate oxygenation. Right AC INT flushes without difficulty. Plan of care discussed for this shift to include meds/nebs/O2/Calling for questions/concerns. Verbalizes understanding. Call light in reach. Will monitor.
[2023-07-06] VITALS (11 sets, daily range): BP systolic 131–152; BP diastolic 57–82; PULSE 60–69; TEMP 97.3–97.9
--- NOTE | 2023-07-06 00:30 | NUR ---
Patient resting in bed eyes closed with CPAP on. No s/s of pain or discomfort noted. Call light in reach/bed alarm on. Will monitor.
--- NOTE | 2023-07-06 05:19 | NUR ---
Patient slept well later this shift with CPAP on. Noted to have abdominal distention-states he hasnt had a BM since Wednesday. Received MOM and Mirilax at HS. Was up to bedside commode and had a small loose stool. Voiding without difficulty. VS stable. Currently on O2@3L/NC which baseline. Right AC INT flushes without difficulty no s/s of infiltration noted. Is a heavy 2 assist-wheelchair bound/pivot. Denies current needs. Call light in reach. Will monitor.
--- NOTE | 2023-07-06 06:40 | NUR ---
Bedside report given to TRAVIS Lizarraga.
[2023-07-06] MEDS ORDERED: metOLazone 2.5 MG TAB PO SCH (07:00)
--- NOTE | 2023-07-06 08:30 | NUR ---
PT LAYING IN BED UPON ENTERING. ASSESSMENT DONE, MEDS GIVEN PER ORDER. PT DENIES PAIN BUT CONCERNED ABOUT "BUBBLING" IN HIS ABDOMEN. BOWEL SOUNDS HYPOACTIVE. PT ON 3L NASAL CANNULA. INT TO RIGHT AC PATENT. PT DENIES NEEDS. BED IN LOWEST POSITION, CALL LIGHT IN REACH, BED ALARM ON.
[2023-07-06] MEDS ORDERED: Methylnaltrexone 12 MG/0.6 ML VIAL SQ ONE (09:00)
--- NOTE | 2023-07-06 10:49 | NUR ---
Cardiac Monitor Technician spoke with Hospitalist who advised patient could return to [facility] today. SW met with patient to review IM. Patient verbalized understanding and provided signature. SW placed form in chart and provided copy to patient. SW contacted Alyssa at [facility] and faxed updates. Later on, Hospitalist contacted AVIVA and advised patient would not discharge today and required further workup. SW provided update to patient and to Alyssa at [facility]. Discharge Plan: [facility]
--- NOTE | 2023-07-06 14:49 | NUR ---
PT BACK IN ROOM FROM CT. PT CURRENTLY NPO AND THIS NURSE ASKED TATIANNA FIGUEROA, IF PT CAN RESUME DIET. THIS NURSE TOLD AFTER CT RESULTS.
--- NOTE | 2023-07-06 16:12 | NUR ---
DULCOLAX SUPPOSITORY PLACED AND PT PLACED ON LEFT SIDE. BED IN LOWEST POSITION, CALL LIGHT IN REACH, BED ALARM ON
--- NOTE | 2023-07-06 16:45 | NUR ---
PT ASKING THIS NURSE IF HE CAN EAT. DR QUINONEZ UPDATED AND GAVE THIS NURSE A VERBAL ORDER TO PLACE HIM ON A CLEAR LIQUID DIET.
--- NOTE | 2023-07-06 21:45 | NUR ---
Patient resting in bed. Denies any pain or needs at this time. Assessment complete. IV in right AC flushes easily with no complications. Call light and personal items in reach. Bed in low position and bed alarm on.
[2023-07-07] VITALS (13 sets, daily range): BP systolic 132–162; BP diastolic 65–72; PULSE 59–70; TEMP 97.4–98.8
--- NOTE | 2023-07-07 06:05 | NUR ---
Patient resting in bed. Denies any pain or needs this morning. Took patient off Cpap and put 2L NC back on. Patient had a medium to large liquid bowel movement last night. No other changes over night. Call light and personal items in reach. Bed in low position and bed alarm on.
--- NOTE | 2023-07-07 07:20 | NUR ---
awake resting in bed, bedside shift report received from TRAVIS Encinas
--- NOTE | 2023-07-07 08:20 | NUR ---
resting in bed, full assessment completed, see interventions for further info,
--- NOTE | 2023-07-07 09:00 | NUR ---
Dr Shrestha was in to seepatient
--- NOTE | 2023-07-07 09:50 | NUR ---
sitting up in chair, States physical therapy was in and assisted him up and WC and he moved himself down the goyal and then back to room and into chair, denies needs at this time
[2023-07-07] MEDS ORDERED: LR 1,000 ML IV SCH (10:00)
--- NOTE | 2023-07-07 12:13 | NUR ---
Applications Tester faxed clinical updates to Alyssa at [facility].
--- NOTE | 2023-07-07 13:40 | NUR ---
assisted out of chair and into bed and to radiology for gastrografin enema
--- NOTE | 2023-07-07 14:37 | NUR ---
remains off unit in radiology
--- NOTE | 2023-07-07 15:26 | NUR ---
with assistance of 2 assisted up to bedside commode per his request
[2023-07-07] MEDS ORDERED: Insulin Lispro (HumaLOG) SQ SCH (16:00)
--- NOTE | 2023-07-07 16:00 | NUR ---
assisted back to bed after passing large amount liquid stool and patient states also passed large amount of flatus, abdomen is still rounded but is less rounded and more soft
--- NOTE | 2023-07-07 18:15 | NUR ---
rsting in bed visiting with a friend
--- NOTE | 2023-07-07 18:59 | NUR ---
bedside shift report given to TRAVIS Encinas
--- NOTE | 2023-07-07 21:30 | NUR ---
Patient resting in bed. Denies any pain at this time. Needs met. Assessment complete. Abdomen remains distened and firm. IV in right AC flushes easily with no complications. Call light and personal items in reach. Bed in low position and bed alarm on.
[2023-07-08] VITALS (10 sets, daily range): BP systolic 116–152; BP diastolic 51–71; PULSE 60–64; TEMP 97.5–98.9
--- NOTE | 2023-07-08 06:00 | NUR ---
Patient resting in bed with eyes closed. Respirations even and unlabored. No signs of pain or needs at this time. No changes over night. Patient has been NPO since 0000. Call light and personal items in reach. Bed in low position and bed alarm on.
--- NOTE | 2023-07-08 07:53 | NUR ---
Pt laying in bed. A&Ox4. VSS. S1S2. Clear lungs in upper lobes, diminished in lower lobes. ABD is distended, firm, non-tender with audible bowel sounds. Palpable pulses in all extremities with minimal strength in lower extremities. Pt pivotted to bedside commode with walker. Pt denies pain, n/v, headache, dizziness. IV in R AC is patent, no issues. Pt is on 2 L NC. Pt is NPO - unable to take meds as Pt only takes meds with applesauce. Pt wearing SCDs. Pt straining to go to bathroom - became a little dizzy, quicklyresolved once stopped straining. Ambulated back to bed, applied barrier cream to bottom - Pt reports feeling a little sore. Pt had a incontinent episode in bed. Cleaned Pt up. No further needs at this time. Call light in reach and bed alarm on.
[2023-07-08 09:11] LABS: HEMOGLOBIN 13.3 g/dl (13.5-18.0); MEAN CELL VOLUME 84 fl (80.0-100.0); MEAN CORPUSCULAR HEMOGLOBIN 27 pg (27-31); MEAN CORPUSCULAR HGB CONC 32 g/dl (33.0-37.0); MEAN PLATELET VOLUME 9.7 fl (7.4-10.4); PLATELET COUNT 250 K/mm3 (130-400); RED BLOOD COUNT 5.01 M/mm3 (4.20-5.60); REDCELL DISTRIBUTION WIDTH-CV 15.6 % (11.5-14.5)
[2023-07-08 09:29] LABS: CALCIUM 10.1 mg/dL (8.4-10.2); CREATININE, serum 1.88 mg/dL (0.72-1.25); MAGNESIUM 1.8 mg/dL (1.6-2.6)
[2023-07-08 09:48] LABS: POTASSIUM 2.8 mEq/L (3.5-4.5)
[2023-07-08 10:03] LABS: BAND 1 % (0-10); EOSINOPHIL 2 % (0-4); LYMPHOCYTE 11 % (20.0-51.0); NEUTROPHILS 80 % (42.0-75.2); PLATELET ESTIMATE NORMAL (NORMAL)
--- NOTE | 2023-07-08 11:13 | NUR ---
Notified TATIANNA Mayo regarding critical potassium result: 2.8. Placing Pt on Potassium replacement protocol. Pt going down to sigmoidoscopy witing to hear back from Endo if they would prefer to start potassium after Pt returns from procedure.
[2023-07-08] MEDS ORDERED: *Potassium Replacement Protocol MC SCH (11:15)
[2023-07-08] MEDS ORDERED: Potassium Chloride 100 ML IV SCH ×3 (11:15→17:15)
[2023-07-08] MEDS ORDERED: Magnesium Sulfate 2 GM/50 ML IV SOLN IV ONE ×2 (11:45→17:45)
--- NOTE | 2023-07-08 12:03 | NUR ---
Pt off floor for Sigmoidoscopy.
[2023-07-08] MEDS ORDERED: Lidocaine PF 2% (20 MG/ML) 5 ML VIAL ONE (12:19)
[2023-07-08] MEDS ORDERED: fentaNYL 50 MCG/ML 2 ML VIAL ONE (12:20)
--- NOTE | 2023-07-08 13:00 | NUR ---
Pt back from sigmoidoscopy. Recieved orders for ADA diet. Administered Pt's meds with applesauce. Pt's VSS. No further needs at this time. Call light in reach and bed alarm.
--- NOTE | 2023-07-08 14:29 | NUR ---
Manufacturing Design Engineer faxed clinical updates to [facility].
--- NOTE | 2023-07-08 20:45 | NUR ---
Patient resting in bed. Denies any pain at this time. Needs met. Assessment complete. IV in right AC infusing with no complications. Call light and personal items in reach. Bed in low position and bed alarm on.
--- NOTE | 2023-07-08 21:26 | NUR ---
Hospitalist Tali called and notifed patient is still getting Accu checks Q4H and was previously ACHS, was switched to Q4H when he was NPO for his sigmoidoscopy. Stated to keep him on Q4H Accu checks for now.
[2023-07-09] VITALS (8 sets, daily range): BP systolic 122–158; BP diastolic 62–67; PULSE 59–79; TEMP 97.8–98.9
--- NOTE | 2023-07-09 06:15 | NUR ---
Patient resting in bed. Denies any pain or needs at this time. No changes over night. Call light and personal items in reach. Bed in low positon and bed alarm on.
[2023-07-09 08:02] LABS: BASO % 0.2 % (0.0-2.0); EOS # 0.2 K/mm3 (0.0-0.7); EOS % 1.6 % (0.0-4.0); GRAN # 7.8 K/mm3 (1.4-6.5); GRAN % 74.8 % (42.2-75.2); HEMATOCRIT 41.4 % (42.0-52.0); HEMOGLOBIN 13.1 g/dl (13.5-18.0); LYMPH # 1.2 K/mm3 (1.2-3.4); LYMPH % 11.5 % (20.0-51.0); MEAN CELL VOLUME 85 fl (80.0-100.0); MEAN CORPUSCULAR HEMOGLOBIN 27 pg (27-31); MEAN CORPUSCULAR HGB CONC 32 g/dl (33.0-37.0); MEAN PLATELET VOLUME 10.4 fl (7.4-10.4); MONO # 1.2 K/mm3 (0.1-0.6); PLATELET COUNT 234 K/mm3 (130-400); REDCELL DISTRIBUTION WIDTH-CV 15.5 % (11.5-14.5)
[2023-07-09 09:13] LABS: CALCIUM 9.2 mg/dL (8.4-10.2); CREATININE, serum 1.87 mg/dL (0.72-1.25); POTASSIUM 3.5 mEq/L (3.5-4.5)
[2023-07-09] MEDS ORDERED: *Potassium Replacement Protocol MC SCH (09:30)
[2023-07-09] MEDS ORDERED: Potassium Chloride 100 ML IV SCH (09:30)
--- NOTE | 2023-07-09 09:37 | NUR ---
Assessment complete. A/O x4. O2 2L/NC. Pt sitting up in bed eating breakfast. Denies pain or needs. Repositioned to left side with chair waffle cushion under buttock/coccyx.
[2023-07-09] MEDS ORDERED: AMOXICILLIN 8751 TAB PO (13:19)
--- NOTE | 2023-07-09 14:00 | NUR ---
Pt sat up in chair most of the morning, using waffle cushion. Discharge orders rec'd. INT to RAC d/c'd with cath tip intact.
--- NOTE | 2023-07-09 14:45 | NUR ---
Pt discharged, via w/c and private vehicle, to [facility] at [facility], via [facility] staff.
--- NOTE | 2023-07-09 14:47 | NUR ---
Report called to Jeannette at [facility].
--- NOTE | 2023-07-09 15:36 | NUR ---
Orchard Pruner attended clinical rounds with the team and patient is ready for discharge. Patient has reservations about discharge and would like to speak with Dr. Shrestha. After speaking with Dr. Shrestha, patient is comfortable with discharge. SW presented and reviewed IM form with patient who verbalized understanding and provided signature. SW placed form in chart then provided copy to patient. AVIVA contacted Alyssa at [facility] and faxed clinical updates. [facility] is able to accept today and transport time was set for 1430. SW attempted to contact patient's daughter, Rekha and left a message. Discharge Plan; [facility]
[2023-07-09] MEDS ORDERED: Amoxicillin/Clavulanate K+ 875/125 MG TAB PO SCH (17:00)
[2023-07-10] MEDS ORDERED: metOLazone 2.5 MG TAB PO SCH (09:00)
== END 2023-07-09 14:45 | DRG 189 ==
LOC: COL.ER 07:58 → MEDICAL 10:26
PROVIDERS: Emergency Medicine; Hospitalist; Physician Assistant; Surgery; ADMIT Internal Medicine
PROC: 5A09557 Assistance with Respiratory Ventilation, Greater than 96 Consecutive Hours, Continuous Positive Airway Pressure (ICD-10-PCS; 2023-07-03)
PROC: 0DJD8ZZ Inspection of Lower Intestinal Tract, Via Natural or Artificial Opening Endoscopic (ICD-10-PCS; principal; 2023-07-08 12:00)
DX: J96.21 Acute and chronic respiratory failure with hypoxia (principal); K56.2 Volvulus; J44.1 Chronic obstructive pulmonary disease with (acute) exacerbation; I13.0 Hypertensive heart and chronic kidney disease with heart failure and stage 1 through stage 4 chronic kidney disease, or unspecified chronic kidney disease; I50.32 Chronic diastolic (congestive) heart failure; Q43.8 Other specified congenital malformations of intestine; K56.600 Partial intestinal obstruction, unspecified as to cause; J98.11 Atelectasis; F43.10 Post-traumatic stress disorder, unspecified; F31.9 Bipolar disorder, unspecified; E11.22 Type 2 diabetes mellitus with diabetic chronic kidney disease; N18.30 Chronic kidney disease, stage 3 unspecified; I27.20 Pulmonary hypertension, unspecified; E78.5 Hyperlipidemia, unspecified; I48.0 Paroxysmal atrial fibrillation; E11.42 Type 2 diabetes mellitus with diabetic polyneuropathy; E87.6 Hypokalemia; E83.42 Hypomagnesemia; K59.09 Other constipation; G47.33 Obstructive sleep apnea (adult) (pediatric); I25.10 Atherosclerotic heart disease of native coronary artery without angina pectoris; R91.8 Other nonspecific abnormal finding of lung field; D64.9 Anemia, unspecified; R53.81 Other malaise; Z90.49 Acquired absence of other specified parts of digestive tract; Z88.8 Allergy status to other drugs, medicaments and biological substances; Z99.81 Dependence on supplemental oxygen; Z91.030 Bee allergy status; Z79.01 Long term (current) use of anticoagulants; Z79.899 Other long term (current) drug therapy; Z79.82 Long term (current) use of aspirin; Z87.891 Personal history of nicotine dependence; Z23 Encounter for immunization
CPT/HCPCS: A9270; J1815; J2212; J2543; J2704; J2919; J3010; J3475; J3480; J7512

== ENCOUNTER → 2023-09-02 | Outpatient (CLI) | payer MEDICARE, OTHER ==
[~2023-09-02] MED LIST changes: +AFRIN 15 ML15 ML NS; +AMOXICILLIN 8751 TAB PO; +BIOTENE DRY M1000 ML PO; +ENULOSE10 GM/151 PO; +GAS AID MAXIMU125 MG PO; +GENTLE LAXATIVE10 MG RC; +GOOD NEIGH1200 MG/15 PO; +LAC-HYDRIN LOT 225GM TP; +PREVAGEN PO; +REFRESH OPTIVE10 M2 OP; +RT SPIRIVA18 MCG PO; +TESSALON P100 MG/CAP PO; +TRIAMCINOLONE A15 G3 TP; +TYLENOL 325MG325 MG PO; +[UNRECOGNIZED DRUG - SUPPLY] PO
[2023-09-02 14:18] LABS: COLLECTION METHOD CLEAN CATCH
[2023-09-02 14:24] LABS: BASO % 0.4 % (0.0-2.0); EOS # 0.3 K/mm3 (0.0-0.7); EOS % 3.4 % (0.0-4.0); GRAN # 5.9 K/mm3 (1.4-6.5); GRAN % 71.5 % (42.2-75.2); HEMATOCRIT 39.6 % (42.0-52.0); HEMOGLOBIN 12.1 g/dl (13.5-18.0); LYMPH # 1.2 K/mm3 (1.2-3.4); LYMPH % 14.2 % (20.0-51.0); MEAN CELL VOLUME 84 fl (80.0-100.0); MEAN CORPUSCULAR HEMOGLOBIN 26 pg (27-31); MEAN CORPUSCULAR HGB CONC 31 g/dl (33.0-37.0); MEAN PLATELET VOLUME 10.7 fl (7.4-10.4); MONO # 0.8 K/mm3 (0.1-0.6); MONO % 9.6 % (1.7-9.3); PLATELET COUNT 211 K/mm3 (130-400); RED BLOOD COUNT 4.72 M/mm3 (4.20-5.60); REDCELL DISTRIBUTION WIDTH-CV 15.8 % (11.5-14.5)
[2023-09-02 14:45] LABS: CALCIUM 10.1 mg/dL (8.4-10.2); CREATININE, serum 2.72 mg/dL (0.72-1.25); POTASSIUM 3.6 mEq/L (3.5-4.5)
[2023-09-02 14:55] LABS: URINE APPEARANCE CLEAR (CLEAR/HAZY); URINE BLOOD NEGATIVE (NEGATIVE); URINE COLOR YELLOW (YELLOW); URINE GLUCOSE 1+ (NEGATIVE); URINE KETONE NEGATIVE (NEGATIVE); URINE NITRATE NEGATIVE (NEGATIVE); URINE PROTEIN(semi-quant) NEGATIVE (NEGATIVE); URINE UROBILINOGEN 0.2 E.U/dL (0.2-1.0)
== END ==
LOC: ZCOL.LAB 11:43
PROVIDERS: Internal Medicine
DX: N18.4 Chronic kidney disease, stage 4 (severe) (principal); N39.0 Urinary tract infection, site not specified

== ENCOUNTER 2023-12-14 05:46 | Day surgery (SDC) | payer MEDICARE, OTHER ==
[2023-11-17 15:05] LABS: ALBUMIN 3.2 g/dL (3.4-4.8); BILIRUBIN,TOTAL 0.3 mg/dL (0.2-1.2); CALCIUM 9.4 mg/dL (8.4-10.2); CREATININE, serum 1.65 mg/dL (0.72-1.25); POTASSIUM 3.8 mEq/L (3.5-4.5)
[~2023-12-14] VITALS: Ht 180.3 cm; Wt 99.1 kg
[~2023-12-14 05:46] MED LIST changes: +LR 1,000 ML IV SCH; +Ondansetron 4 MG/2 ML VIAL IV PRN
[2023-12-14] MEDS ORDERED: DAZIDOX10 MG PO (07:08)
[2023-12-14 07:24] VITALS: BP 139/66; PULSE 73; TEMP 97.2
[2023-12-14 08:15] VITALS: BP 124/64; PULSE 76; TEMP 97.1
--- NOTE | 2023-12-14 08:15 | NUR ---
PATIENT RETURNED TO BAY 1 VIA CART, DROWSY AND AROUSES TO NAME. ORIENTED X3. DENIES PAIN, NAUSEA AND SHORTNESS OF BREATH. BREATHING REGULAR AND UNLABORED ON 3L VIA NASAL CANNULA. 2-3L VIA NASAL CANNULA IS BASELINE FOR PATIENT PER REPORT. SKIN WARM AND DRY. IV IN PLACE. NURSE HANDOFF COMPLETED IN ROOM. SEE CHART FOR VITAL SIGNS.
[2023-12-14 08:30] VITALS: BP 130/67; PULSE 69
--- NOTE | 2023-12-14 08:30 | NUR ---
PATIENT IS ALERT. APPLE JUICE AND JELLO TOLERATED WELL, NO DYSPHAGIA. PATIENT RESTING IN CART, NO COMPLAINTS. CALL LIGHT IN REACH.
[2023-12-14 08:45] VITALS: BP 136/72; PULSE 70
[2023-12-14 09:00] VITALS: BP 140/72; PULSE 70
[2023-12-14 09:02] VITALS: BP 147/79; PULSE 70
--- NOTE | 2023-12-14 09:10 | NUR ---
0850: REPORT CALLED TO EPIFANIO Johns RN AT [facility]. COMMUNICATED FOLLOW UP APPOINTMENT INFORMATION DURING CALL. 0852: DISCHARGE TEACHING COMPLETED WITH PRINTED EDUCATION AND INSTRUCTIONS SENT WITH PATIENT. PHYSICIAN FORM (FROM [facility]) COMPLETED BY AND SENT WITH PATIENT. FOLLOW UP DATE, TIME AND LOCATION COMMUNICATED TO PATIENT. PATIENT VERBALIZED UNDERSTANDING OF TEACHING. 0901: IV REMOVED. GAUZE AND COBAN PLACED OVER SITE. 0902: PATIENT VOIDED IN URINAL AND CHANGED INTO PERSONAL CLOTHING. PERSONAL OXYGEN CANNULA IN PLACE AND CONNECTED TO PERSONAL OXYGEN DEVICE. 0910: PATIENT DISCHARGED (IN WHEELCHAIR) WITH [facility] TRANSPORT. PERSONAL OXYGEN DEVICE AND BELONGINGS SENT WITH PATIENT.
== END 2023-12-14 09:10 | disposition home or self-care (01) ==
LOC: SDCO 05:46
PROVIDERS: Surgery
DX: R14.0 Abdominal distension (gaseous) (principal); J44.9 Chronic obstructive pulmonary disease, unspecified; G47.33 Obstructive sleep apnea (adult) (pediatric); E11.22 Type 2 diabetes mellitus with diabetic chronic kidney disease; N18.30 Chronic kidney disease, stage 3 unspecified; E11.40 Type 2 diabetes mellitus with diabetic neuropathy, unspecified; I12.9 Hypertensive chronic kidney disease with stage 1 through stage 4 chronic kidney disease, or unspecified chronic kidney disease; Z98.0 Intestinal bypass and anastomosis status; Z79.82 Long term (current) use of aspirin; Z87.891 Personal history of nicotine dependence; Z99.81 Dependence on supplemental oxygen; Z99.89 Dependence on other enabling machines and devices; Z79.01 Long term (current) use of anticoagulants
CPT/HCPCS: J2704; J7120